=== PATIENT | male | born 1945 | race Caucasian/White ===

== ENCOUNTER 2024-10-08 16:30 | Inpatient (IN) | payer MEDICARE, OTHER, SELFPAY ==
[2024-10-08] VITALS (10 sets, daily range): BP systolic 114–146; BP diastolic 77–91; BMI 26.5; BMI 25.9
--- NOTE | 2024-10-08 11:36 | ED.GENMED ---
ED Provider Triage
<Alex Meredith PA-C - Last Filed: 10/08/24 11:39>
-
Patient seen by provider in Triage?: Seen in Triage
78-year-old male presents with fatigue headache nausea increased urinary symptoms worsening over the past week. Seen in urgent care yesterday tested negative for COVID and flu. He has been sleeping all day which is atypical. No measurable fever
but also notes epigastric discomfort and some heartburn sensation.
Vital signs stable through triage.
Seen by healthcare provider at triage but warrants further assessment
History of Present Illness
<Alex Meredith PA-C - Last Filed: 10/08/24 11:39>
General
Chief Complaint: Cold/Flu/URI Symptoms
Time Seen by Provider: 10/08/24 15:05
<David Moreno MD - Last Filed: 10/08/24 19:06>
General
Source: patient and family
Exam Limitations: none
History of Present Illness
History of Present Illness:
70-year-old male complaining of intermittent indigestion or heartburn since Friday. Last episode this morning. Also some anorexia and fatigue. Currently asymptomatic. No fever no pleuritic pain no other complaints
Past History
<David Moreno MD - Last Filed: 10/08/24 19:06>
Past History
ED Past Medical History: HTN and Other (Prostatic hypertrophy)
ED Past Surgical History: Orthopedic
Review of Systems
<David Moreno MD - Last Filed: 10/08/24 19:06>
Review of Systems
All Other Systems: Not applicable
Constitutional: Denies fever
Respiratory: Reports no symptoms
ABD/GI: Denies abdominal pain, bloody stools or black stools
Phy Exam
<David Moreno MD - Last Filed: 10/08/24 19:06>
Physical Exam
Physical Exam:
GENERAL: Alert and oriented in no apparent distress
EYE: Orbits normal.
NECK: Supple, no significant adenopathy.
ENT: Pharynx without erythema
CARDIAC: Regular rate and rhythm without any obvious murmurs.
LUNGS: Clear breath sounds,normal
ABDOMEN: Soft, without focal tenderness or distention
NEUROLOGICAL: Alert and oriented , grossly non-focal
SKIN: Warm and dry, no rash or lesion, no discoloration, skin intact.
MUSCULOSKELETAL: No edema,no deformity.Good color
PSYCH: Normal and appropriate interaction.
Course
<Alex Meredith PA-C - Last Filed: 10/08/24 11:39>
Orders/Labs/Results
Orders:
Orders
10/08/24 11:35
CR Chest - 2 Views Urgent
Comment:
Reason For Exam: fatigue
10/08/24 11:37
Electrocardiogram (*1) Urgent
Reason for Study: Fatigue / Weakness
EKG- Treatment ONCE
10/08/24 11:41
COVID-19 Antigen Urgent
Source: Nasal Swab
Complete Blood Count/With Diff Urgent
Comprehensive Metabolic Panel Urgent
Lipase Urgent
Influenza A+B Rapid Molecular Urgent
DEBBIE Source: Nasal Swab
Specimen Description:
10/08/24 11:42
Troponin I Urgent
10/08/24 14:35
Electrocardiogram (*1) Urgent
Reason for Study: Chest Pain
EKG- Treatment ONCE
Aspirin Chewable [Low Strength Aspirin] 324 mg PO NOW STA
10/08/24 14:48
Troponin I Urgent
10/08/24 Dinner
Regular
At Your Request: Full Participation
Does patient need a safe tray?: No
10/08/24 16:03
Admit/Transfer Patient As Directed
Co-Sign Provider:
Level of Care: Inpatient admission
Assign to:: Telemetry
Physician / Group: duarte
Diagnosis: nstemi
Reason for Telemetry: Arrhythmia
Date to Stop Telemetry: 10/11/24
Time to Stop Telemetry: 11:00
Reason for Hospitalization: nstemi
Expected length of stay greater than two midnights?: Yes
ELOS- Estimated Length of Stay in days: 2
I certify the patient meets the requirements for IP care: Yes
PRN Pain Medication Management As Directed
May give lesser potent ordered pain med per pt: Yes
preference::
Protocol:: Medication orders for pain may be administered in a
manner that supports deferring to patient preference
when the pt is:
- Requesting an ordered lesser potent pain medication.
Least to most potent pain medications are defined
as: acetaminophen < NSAID < tramadol < opioids
(morphine, oxycodone, hydromorphone).
- Requesting a lesser dose of the same medication IF
ORDERED.
- Requesting a less intrusive route of administration
if both routes are prescribed by the provider (PO <
IV).
10/08/24 16:04
Code Status As Directed
Resuscitation Status: Full Code
10/08/24 16:20
Echo 2D MMode Color/Doppler Routine
Reason for Study: Abnormal troponin
10/08/24 16:53
Urinalysis Reflex To Culture Urgent
Date Specimen was Collected: 10/08/24
Time Specimen was Collected: 16:29
10/08/24 18:25
Troponin I Q6H
Polyethylene Glycol Powder [Miralax] 17 grams PO DAILYPRN PRN
10/08/24 18:25
Echo 2D MMode Color/Doppler Routine
Reason for Study: nstemi
CARDIOLOGY CONSULT Routine
Consulting Provider: Mickey Kaplan
Was physician already notified: Yes
Activity As Directed
Activity Level: As Tolerated
Vital Signs As Directed
Frequency: Per unit guidelines
DX Deep Vein Thrombosis Video Routine
10/08/24 20:00
Heparin 5,000 units SC Q12
10/09/24 00:25
Troponin I Q6H
10/09/24 06:00
Complete Blood Count/With Diff IN AM
Comprehensive Metabolic Panel IN AM
10/09/24 06:25
Troponin I Q6H
10/09/24 08:00
Aspirin Chewable [Low Strength Aspirin] 81 mg PO DAILY
10/11/24 11:00
DC Protocol for Telemetry ONCE
Abnormal Lab Results
10/08/24 10/08/24 10/08/24
11:41 11:42 14:48
RBC 4.25 L 10^6/uL
(4.70-6.10)
MCH 32.2 H pg
(27.0-31.0)
Absolute Lymphs (auto) 0.7 L 10^3/uL
(1.2-3.4)
Absolute Monos (auto) 0.8 H 10^3/uL
(0.1-0.6)
Lymphocytes % 10.6 L %
(20.5-51.1)
Monocytes % 12.1 H %
(1.7-9.3)
Sodium 134 L mmol/L
(135-145)
Chloride 97 L mmol/L
(98-107)
BUN 24 H mg/dl
(9-20)
Glucose 158 H mg/dl
(70-99)
Total Bilirubin 1.5 H mg/dl
(0.2-1.3)
Troponin I 0.109 H* ng/ml 0.099 H* ng/ml
10/08/24 11:41
10/08/24 11:41
Vital Signs
Initial and Last Documented VS:
Initial Vital Signs
Temp Pulse Resp BP Pulse Ox
98.1 F 91 18 124/81 97
10/08/24 11:24 10/08/24 11:24 10/08/24 11:24 10/08/24 11:24 10/08/24 11:24
Last Documented Vital Signs
Temp Pulse Resp BP Pulse Ox
98.6 F 89 16 141/89 99
10/08/24 18:32 10/08/24 18:32 10/08/24 18:32 10/08/24 18:32 10/08/24 18:32
<David Moreno MD - Last Filed: 10/08/24 19:06>
Orders/Labs/Results
Orders:
Orders
10/08/24 11:35
CR Chest - 2 Views Urgent
Comment:
Reason For Exam: fatigue
10/08/24 11:37
Electrocardiogram (*1) Urgent
Reason for Study: Fatigue / Weakness
EKG- Treatment ONCE
10/08/24 11:41
COVID-19 Antigen Urgent
Source: Nasal Swab
Complete Blood Count/With Diff Urgent
Comprehensive Metabolic Panel Urgent
Lipase Urgent
Influenza A+B Rapid Molecular Urgent
DEBBIE Source: Nasal Swab
Specimen Description:
10/08/24 11:42
Troponin I Urgent
10/08/24 14:35
Electrocardiogram (*1) Urgent
Reason for Study: Chest Pain
EKG- Treatment ONCE
Aspirin Chewable [Low Strength Aspirin] 324 mg PO NOW STA
10/08/24 14:48
Troponin I Urgent
10/08/24 Dinner
Regular
At Your Request: Full Participation
Does patient need a safe tray?: No
10/08/24 16:03
Admit/Transfer Patient As Directed
Co-Sign Provider:
Level of Care: Inpatient admission
Assign to:: Telemetry
Physician / Group: duarte
Diagnosis: nstemi
Reason for Telemetry: Arrhythmia
Date to Stop Telemetry: 10/11/24
Time to Stop Telemetry: 11:00
Reason for Hospitalization: nstemi
Expected length of stay greater than two midnights?: Yes
ELOS- Estimated Length of Stay in days: 2
I certify the patient meets the requirements for IP care: Yes
PRN Pain Medication Management As Directed
May give lesser potent ordered pain med per pt: Yes
preference::
Protocol:: Medication orders for pain may be administered in a
manner that supports deferring to patient preference
when the pt is:
- Requesting an ordered lesser potent pain medication.
Least to most potent pain medications are defined
as: acetaminophen < NSAID < tramadol < opioids
(morphine, oxycodone, hydromorphone).
- Requesting a lesser dose of the same medication IF
ORDERED.
- Requesting a less intrusive route of administration
if both routes are prescribed by the provider (PO <
IV).
10/08/24 16:04
Code Status As Directed
Resuscitation Status: Full Code
10/08/24 16:20
Echo 2D MMode Color/Doppler Routine
Reason for Study: Abnormal troponin
10/08/24 16:53
Urinalysis Reflex To Culture Urgent
Date Specimen was Collected: 10/08/24
Time Specimen was Collected: 16:29
10/08/24 18:25
Troponin I Q6H
Polyethylene Glycol Powder [Miralax] 17 grams PO DAILYPRN PRN
10/08/24 18:25
Echo 2D MMode Color/Doppler Routine
Reason for Study: nstemi
CARDIOLOGY CONSULT Routine
Consulting Provider: Mickey Kaplan
Was physician already notified: Yes
Activity As Directed
Activity Level: As Tolerated
Vital Signs As Directed
Frequency: Per unit guidelines
DX Deep Vein Thrombosis Video Routine
10/08/24 20:00
Heparin 5,000 units SC Q12
10/09/24 00:25
Troponin I Q6H
10/09/24 06:00
Complete Blood Count/With Diff IN AM
Comprehensive Metabolic Panel IN AM
10/09/24 06:25
Troponin I Q6H
10/09/24 08:00
Aspirin Chewable [Low Strength Aspirin] 81 mg PO DAILY
10/11/24 11:00
DC Protocol for Telemetry ONCE
Abnormal Lab Results
10/08/24 10/08/24 10/08/24
11:41 11:42 14:48
RBC 4.25 L 10^6/uL
(4.70-6.10)
MCH 32.2 H pg
(27.0-31.0)
Absolute Lymphs (auto) 0.7 L 10^3/uL
(1.2-3.4)
Absolute Monos (auto) 0.8 H 10^3/uL
(0.1-0.6)
Lymphocytes % 10.6 L %
(20.5-51.1)
Monocytes % 12.1 H %
(1.7-9.3)
Sodium 134 L mmol/L
(135-145)
Chloride 97 L mmol/L
(98-107)
BUN 24 H mg/dl
(9-20)
Glucose 158 H mg/dl
(70-99)
Total Bilirubin 1.5 H mg/dl
(0.2-1.3)
Troponin I 0.109 H* ng/ml 0.099 H* ng/ml
10/08/24 11:41
10/08/24 11:41
Vital Signs
Initial and Last Documented VS:
Initial Vital Signs
Temp Pulse Resp BP Pulse Ox
98.1 F 91 18 124/81 97
10/08/24 11:24 10/08/24 11:24 10/08/24 11:24 10/08/24 11:24 10/08/24 11:24
Last Documented Vital Signs
Temp Pulse Resp BP Pulse Ox
98.6 F 89 16 141/89 99
10/08/24 18:32 10/08/24 18:32 10/08/24 18:32 10/08/24 18:32 10/08/24 18:32
<David Moreno MD - Last Filed: 10/08/24 19:06>
MDM/Problems Addressed
Differential Diagnosis Includes:
Patient describing intermittent indigestion/heartburn with fatigue and anorexia. Intermittent since Friday. Clinically stable and asymptomatic at rest. Indeterminate troponin. No obvious abdominal issue. LFTs are normal white count is normal
lipase is normal abdomen is nontender. Assume cardiac until proven otherwise. Discussed with cardiology
<David Moreno MD - Last Filed: 10/08/24 19:06>
*Pulse Oximetry
Patient hypoxic: no
*EKG
Interpreted by ED Provider?: Yes
Interpretation: abnormal
Comparison EKG: no comparison EKG present
Heart Rate: 85
Rate: normal
Rhythm: sinus
[place]: left axis deviation
Interval: normal interval
QRS Pattern: right bundle branch block
Ischemia: non-specific ST changes
*Critical Care Note
Total Time (30-74mins, 75-104mins- exclusive of procedures): Not Applicable
ED Attending Note
<Alex Meredith PA-C - Last Filed: 10/08/24 11:39>
-
Portions of this chart may have been created with voice recognition software.� Occasional wrong word or��sound alike� substitutions may have occurred due to the inherent limitations of voice recognition software.
Discharge Plan
Departure
Patient Disposition: Admit
Date of Disposition: 10/08/24
Time of Disposition: 15:35
Admit to: Telemetry
Presentation/result/management discussed w/ accepting MD/DO: Hospitalist
Discharge Problem:
Intermittent indigestion/heartburn, Indeterminant troponins
Interventions
Interventions:
*Risk Screen - Suicide Last Done: 10/08/24 11:24
*General Assessment Last Done: 10/08/24 11:24
*ED COVID-19 Vaccine History Last Done: 10/08/24 11:24
*Nursing Disposition Last Done: 10/08/24 18:27
ED- Pulmonary Assessment Last Done: 10/08/24 17:41
Discharge Date and Time
Discharge Date/Time: 10/08/24 18:27
[2024-10-08 11:48] LABS: % Basophils 0.3 % (0-2); % Eosinophils 5.2 % (0-6); % Immature Granulocytes 0.3 % (0-0.5); % Lymphocytes 10.6 % (20.5-51.1); % Monocytes 12.1 % (1.7-9.3); % Neutrophils 71.5 % (42.2-75.2); Absolute Eosinophils 0.4 10^3/uL (0-0.7); Absolute Lymphocytes 0.7 10^3/uL (1.2-3.4); Absolute Monocytes 0.8 10^3/uL (0.1-0.6); Absolute Neutrophils 4.9 10^3/uL (1.4-6.5); Hematocrit 39.4 % (39.0-52.0); Hemoglobin 13.7 g/dL (13.0-18.0); Mean Corp Hgb Conc. 34.8 g/dL (33.0-37.0); Mean Corpuscular Hgb 32.2 pg (27.0-31.0); Mean Corpuscular Volume 92.7 fL (80.0-94.0); Mean Platelet Volume 9.6 fL (7.4-10.4); Nucleated Red Blood Cells % 0 % (-); Platelet Count 236 10^3/uL (130-400); Red Blood Cell Count 4.25 10^6/uL (4.70-6.10); White Blood Cell Count 6.8 10^3/uL (4.8-10.8)
[2024-10-08 12:05] LABS: ALT (SGPT) 21 U/L (0-50); AST (SGOT) 22 U/L (17-59); Albumin 4.3 g/dl (3.5-5.0); Alkaline Phosphatase 62 U/L (38-126); Blood Urea Nitrogen 24 mg/dl (9-20); Calcium 8.8 mg/dl (8.4-10.2); Carbon Dioxide 26 mmol/L (22-30); Chloride 97 mmol/L (98-107); Glucose 158 mg/dl (70-99); Lipase 171 U/L (23-300); Potassium 4.6 mmol/L (3.5-5.1); Sodium 134 mmol/L (135-145); Total Bilirubin 1.5 mg/dl (0.2-1.3); Total Protein 7.1 g/dl (6.3-8.2); eGFR > 60.00
[2024-10-08 12:10] LABS: COVID-19 Antigen Negative (Negative)
[2024-10-08 12:17] LABS: Troponin I 0.109 ng/ml
[2024-10-08] MEDS: LOW STRENGTH ASPIRIN 324 MG PO (14:46)
[2024-10-08 15:19] LABS: Troponin I 0.099 ng/ml
--- NOTE | 2024-10-08 16:06 | HPS.HSE ---
Family Physician
-
Family Physician: Alex Holt
Chief Complaint
-
fatigue
History of Present Illness
78-year-old male past medical history of hypertension, BPH, presenting with fatigue, headache, nausea and decreased urination, over the past 4 days he was seen in urgent care yesterday negative for COVID and flu. He has been sleeping all day which
is atypical. No fever but has epigastric discomfort and some heartburn sensation.
Denies smoking or alcohol use.
He states that he had seen a air breaker operator 50 years ago and had a stress test at that time which was negative.
He was also told that he when he had a colonoscopy several years ago he was having myocardial ischemia.
No family history of heart disease.
Medical History
Past Medical History
Past Medical History: Reports Other ( hypertension, BPH, anxiety/depression )
Past Surgical History: Reports None
Social History
Tobacco: Non-smoker
Alcohol: None
Drug: None
Family History
Family History: Not pertinent
Allergies / Home Medications
Allergies reflects when Allergies were last updated in [facility].
Home Medications with original date entered in [facility]
Allergy/Medication List:
Allergies
Allergy/AdvReac Type Severity Reaction Status Date / Time
No Known Allergies Allergy Unverified 10/08/24 11:27
Home Medications
ascorbic acid (vitamin C) 500 mg tablet (Vitamin C) 500 mg PO DAILY 10/08/24
cholecalciferol (vitamin D3) 25 mcg (1,000 unit) tablet (Vitamin D3) 25 mcg PO DAILY 10/08/24
ibuprofen 200 mg tablet (Advil) 400 mg PO DAILYPRN PRN mild pain 10/08/24
linaclotide 145 mcg capsule (Linzess) 145 mcg PO DAILYPRN PRN constipation 10/08/24
lisinopril 20 mg tablet 20 mg PO DAILY 10/08/24
sertraline 50 mg tablet 50 mg PO DAILY 10/08/24
tadalafil 5 mg tablet 5 mg PO DAILY 10/08/24
tamsulosin 0.4 mg capsule (Flomax) 0.4 mg PO DAILY 10/08/24
Review of Systems
-
History Source: Patient
A 12 point ROS was completed and negative except as noted: Yes
Constitutional: Reports No Symptoms
EENT: Reports No Symptoms
Respiratory: Reports No Symptoms
Cardiac: Reports No Symptoms
Abdomen/GI: Reports No Symptoms
: Reports No Symptoms
Musculoskeletal: Reports No Symptoms
Skin: Reports No Symptoms
Neurological: Reports No Symptoms
Endocrine: Reports No Symptoms
Hematologic/Lymphatic: Reports No Symptoms
Psych: Reports No Symptoms
Physical Exam
Vital Signs
Vital Signs
Temp Pulse Resp BP Pulse Ox
98.1 F 72 16 146/88 100
10/08/24 11:24 10/08/24 15:00 10/08/24 15:00 10/08/24 15:00 10/08/24 15:00
Physical Exam
General: Well Developed, Well Nourished and No Apparent Distress
HEENT: NormoCephalic, Moist mucous membranes and Atraumatic
Respiratory: Clear
Cardiac: S1/S2 and Regular Rhythm; No Murmur or Rub
GI: Soft, Non Tender, Non Distended and Normal Bowel Sounds; No Organomegaly
Rectal: Deferred by Provider
Musculoskeletal: No Clubbing, No Cyanosis and No Edema
Skin: No Rash
Neuro: Nonfocal/grossly intact
Laboratory Results
-
10/08/24 11:41
10/08/24 11:41
Laboratory Results
Total Bilirubin 1.5 mg/dl (0.2-1.3) H 10/08/24 11:41
AST 22 U/L (17-59) 10/08/24 11:41
ALT 21 U/L (0-50) 10/08/24 11:41
Alkaline Phosphatase 62 U/L (38-126) 10/08/24 11:41
Troponin I 0.099 ng/ml H* 10/08/24 14:48
Lipase 171 U/L (23-300) 10/08/24 11:41
Data Reviewed
-
Lab Data: Labs Reviewed by me
Old Records: Reviewed
Impression/Plan
-
IMPRESSION:
PLAN:
# Atypical intermittent epigastric pain/fatigue/decreased p.o. intake unclear etiology possible NSTEMI
-EKG shows normal sinus rhythm, right bundle branch block
-Troponin of 0.109, trend troponins
-Chest x-ray negative
-COVID and flu negative
-Aspirin given
-Check echo
-Cardiology consulted
# Possible UTI
-Check urinalysis
Essential hypertension
-Continue lisinopril
BPH
-Continue tamsulosin, tadalafil
Anxiety/depression
-Continue sertraline
Full code
DVT prophylaxis�heparin
Regular diet
--- NOTE | 2024-10-08 16:20 | CON.CAR ---
Addendum entered and electronically signed by Mickey Kaplan MD 10/08/24 18:39:
I saw and examined the patient.
The M[employer] INSPECTOR's note was reviewed and I agree with the note.
78-year-old male with a history of hypertension and no prior history of cardiac disease/coronary artery disease who presented because he has not been feeling well over the last couple of days and has had some intermittent heartburn. 4 days ago he
felt fatigued and had decreased appetite. No abdominal pain vomiting or diarrhea. He felt tired and slept more the last couple days and has not eaten much. In addition he had some intermittent 'heartburn'. He states this was some discomfort that
was in the epigastrium and upper mid abdomen. We were consulted because initial troponin was mildly abnormal at 0.1 follow-up troponin was mildly less. Was mildly abnormal on exam patient is in no distress currently has no chest pain or abdominal
pain. No fever or chills. COVID and influenza negative. Echocardiogram today shows normal left ventricular function estimate ejection fraction 50 to 55%
-Exact cause of presentation unclear. Although patient has mildly elevated troponin and I do not think it explains all of his presentation with decreased appetite and fatigue. Although epigastric discomfort can sometimes represent angina would
also consider other GI causes considering the location that he points for his discomfort. Note patient has some concern because his mother had pancreatic cancer. Also possible patient has viral illness adding to patient's symptoms
-Serial troponins
-Aspirin 81 mg a day
-Consider abdominal ultrasound with GI symptomatology and check follow-up LFTs and consider abdominal ultrasound with epigastric discomfort and modestly abnormal bilirubin.
-Based on troponins and patient's clinical course we can determine which testing will be done as an inpatient versus outpatient.
-Defer to primary team to further assess cause of patient's generalized fatigue and anorexia
Original Note:
Consultation
Consultation Request
Date/Time Consultation Requested: 10/08/2024 16:05
Date/Time Consultation Performed: 10/08/2024 16:20
Requesting Provider: Dr. Rendon
Performing Provider: FATIMAH Patel for Dr. Kaplan
Reason for Consultation: Abnormal troponin
Medical History
-
Chief Complaint: Fatigue, headache, nausea, decreased urination
History of Present Illness:
Eliel Batista is a 78-year-old male with hypertension, BPH, and anxiety/depression who presented to urgent care with poor oral intake, fatigue, and headache. He was negative for COVID-19 and influenza. He has been sleeping for most of the day which is
atypical for him. He does endorse intermittent heartburn. He last had heartburn this morning. It was shortly after breakfast. He is not sure how long it lasted. He was found to have an abnormal troponin. He is not having heartburn currently.
He denies chest pain, back pain, diaphoresis, and shortness of breath.
Past Medical History
Past Medical History: HTN, Psychiatric (Anxiety, depression) and Other (BPH)
Social History
Tobacco: Non-Smoker
Alcohol: None
Drug: None
Personal:
Living: With Family
Employment: Employed
Family History
Family History: Reviewed & Not Pertinent
Allergies / Home Medications
Allergy/AdvReac Type Severity Reaction Status Date / Time
No Known Allergies Allergy Unverified 10/08/24 11:27
�Medication �Instructions �Recorded �Confirmed �Type
ascorbic acid (vitamin C) 500 mg 500 mg PO DAILY 10/08/24 10/08/24 History
tablet (Vitamin C)
cholecalciferol (vitamin D3) 25 25 mcg PO DAILY 10/08/24 10/08/24 History
mcg (1,000 unit) tablet (Vitamin
D3)
ibuprofen 200 mg tablet (Advil) 400 mg PO DAILYPRN PRN mild pain 10/08/24 10/08/24 History
linaclotide 145 mcg capsule 145 mcg PO DAILYPRN PRN 10/08/24 10/08/24 History
(Linzess) constipation
lisinopril 20 mg tablet 20 mg PO DAILY 10/08/24 10/08/24 History
sertraline 50 mg tablet 50 mg PO DAILY 10/08/24 10/08/24 History
tadalafil 5 mg tablet 5 mg PO DAILY 10/08/24 10/08/24 History
tamsulosin 0.4 mg capsule (Flomax) 0.4 mg PO DAILY 10/08/24 10/08/24 History
Review of Systems
-
History Source: Patient
All other systems: Negative unless noted
Constitutional: Fatigue
EENT: No Symptoms
Respiratory: No Symptoms
Cardiac: No Symptoms
Abdomen/GI: Diarrhea
: No Symptoms
Musculoskeletal: No Symptoms
Skin: No Symptoms
Neurological: No Symptoms
Endocrine: No Symptoms
Hematologic/Lymphatic: No Symptoms
Physical Exam
Vital Signs
Temp Pulse Resp BP Pulse Ox
98.1 F 72 16 146/88 100
10/08/24 11:24 10/08/24 15:00 10/08/24 15:00 10/08/24 15:00 10/08/24 15:00
Lab Results
10/08/24 11:41
10/08/24 11:41
Troponin I 0.099 ng/ml H* 10/08/24 14:48
Physical Exam
General: Well Developed, Well Nourished, No Apparent Distress and Comfortable
HEENT: Normocephalic and Anicteric
Respiratory: Clear and Non Labored Respirations
Cardiac: S1/S2 and Regular Rhythm; Negative Peripheral Edema
Breast: Deferred by me
GI: Soft, Non Tender, Non Distended and Normal Bowel Sounds
Rectal: Deferred by Provider
Genito-urinary: No Costovertebral Tender
Musculoskeletal: No Clubbing, No Cyanosis and No Edema
Skin: Warm and Dry
Neuro: AO x 3
Hematologic/Lymphatic: No Lymphadenopathy
Psych: Calm
Impression / Plan
-
IMPRESSION/PLAN: 78M with HTN, BPH, and anxiety/depression presented with fatigue, poor oral intake, and heartburn was found to have an abnormal troponin.
Abnormal troponin
-Trend with EKG
-He received ASA 324 mg in the emergency department
-Echocardiogram ordered
Diarrhea
-Consider norovirus, defer to primary service
Hypertension, stable, continue current medical therapy
Data Reviewed
-
EKG: Report Reviewed by me (Sinus rhythm, left axis, RBBB, rate 82)
Labs: Labs Reviewed by me
[2024-10-08 17:11] LABS: Urine Albumin Negative (Neg - Trace); Urine Bilirubin Negative (Negative); Urine Character Clear (Clear); Urine Color Yellow; Urine Glucose Negative (Negative); Urine Ketone Negative (Negative); Urine Leukocyte Negative (Negative); Urine Nitrite Negative (Negative); Urine Occult Blood Negative (Negative); Urine Specific Gravity 1.015 (<1.030); Urine Urobilinogen Negative (Neg - 1+)
[2024-10-08] MEDS: HEPARIN 5000 UNITS SC (20:00)
--- NOTE | 2024-10-08 21:00 | PTCARENOTE ---
Patient admitted to 4W. Telemetry order> NSR w/ RBB, afebrile, HR 84, BP 128/77, pox 98% room air. No c/o pain. Pt ordered serial trops w/ EKG. #20INT that is capped. Plan of care discussed with patient. Call gallardo within reach.
[2024-10-08 21:04] LABS: Troponin I 0.098 ng/ml
[2024-10-08] MEDS: MELATONIN 5 MG PO (22:19)
[2024-10-09 03:07] VITALS: BP 148/84
[2024-10-09 03:24] LABS: Troponin I 0.082 ng/ml
[2024-10-09 07:00] VITALS: BP 132/79
[2024-10-09 08:26] LABS: % Basophils 0.5 % (0-2); % Eosinophils 6.6 % (0-6); % Immature Granulocytes 0.3 % (0-0.5); % Lymphocytes 15.6 % (20.5-51.1); % Monocytes 12.4 % (1.7-9.3); % Neutrophils 64.6 % (42.2-75.2); Absolute Eosinophils 0.4 10^3/uL (0-0.7); Absolute Lymphocytes 0.9 10^3/uL (1.2-3.4); Absolute Monocytes 0.7 10^3/uL (0.1-0.6); Absolute Neutrophils 3.8 10^3/uL (1.4-6.5); Hematocrit 34.5 % (39.0-52.0); Hemoglobin 12.3 g/dL (13.0-18.0); Mean Corp Hgb Conc. 35.7 g/dL (33.0-37.0); Mean Corpuscular Hgb 32.9 pg (27.0-31.0); Mean Corpuscular Volume 92.2 fL (80.0-94.0); Mean Platelet Volume 9.9 fL (7.4-10.4); Nucleated Red Blood Cells % 0 % (-); Platelet Count 218 10^3/uL (130-400); Red Blood Cell Count 3.74 10^6/uL (4.70-6.10); Red Cell Dist. Width 11.8 % (11.5-14.5)
[2024-10-09] MEDS: HEPARIN 5000 UNITS SC (08:48)
[2024-10-09] MEDS: LOW STRENGTH ASPIRIN 81 MG PO (08:49)
[2024-10-09 08:51] LABS: ALT (SGPT) 19 U/L (0-50); AST (SGOT) 22 U/L (17-59); Albumin 3.6 g/dl (3.5-5.0); Alkaline Phosphatase 60 U/L (38-126); Blood Urea Nitrogen 15 mg/dl (9-20); Calcium 8.1 mg/dl (8.4-10.2); Carbon Dioxide 28 mmol/L (22-30); Chloride 96 mmol/L (98-107); Estimated Creatinine Clearance 115 ml/min; Glucose 129 mg/dl (70-99); Potassium 4.9 mmol/L (3.5-5.1); Sodium 134 mmol/L (135-145); Total Bilirubin 1.4 mg/dl (0.2-1.3); Total Protein 6.1 g/dl (6.3-8.2); eGFR > 60.00
--- NOTE | 2024-10-09 08:53 | PTCARENOTE ---
pt aox3, denies pain, sob, n/v. states that he was feeling fatigue and had reflux when admitted but fells better now. currently watching dvt video. resting, call gallardo in reach
[2024-10-09 09:05] LABS: Troponin I 0.071 ng/ml
--- NOTE | 2024-10-09 10:31 | W.PN.HOSP.TC ---
Addendum entered and electronically signed by Keith Murray MD 10/09/24 14:45:
Direct bilirubin has come back as 0.0 indicating indirect bilirubinemia prob Yelena. Other LFTs normal . Pt without abdo tenderness and now tolerating diet. Doubt GB dz clinically .Hold on US abdomen.
Cardiology cleared for DC home with OP stress testing.
Original Note:
Today's Communication/Plan
-
Fractionated bilirubin.
Check an ultrasound of the abdomen.
Await further cardiology recommendations
Assessment / Plan
Assessment / Plan
# Atypical intermittent epigastric pain/nausea/fatigue/decreased p.o. intake.
Associated headache, tiredness and excessive sleeping and can go to work.
Constellation of symptoms are nonspecific and could be viral. COVID and flu negative.
Today asymptomatic and tolerating diet.
LFTs are normal. Lipase is normal. Mildly elevated bilirubin unclear if it is direct or indirect. Will fractionate bilirubin today. With symptom of nausea and nonspecific abdominal discomfort and poor oral intake with his symptoms we will get an
ultrasound of the gallbladder to rule out no biliary pathology.
Urinalysis negative
#Abnormal troponins-patient without chest pain. Troponin is in the indeterminate range. He has a right bundle branch block. Unknown baseline. No history of CAD. Unclear etiology. With constellation of symptoms concerning for nonspecific
illness and viral illness could be related to that. Appreciate cardiology input.
-EKG shows normal sinus rhythm, right bundle branch block
-Troponin of 0.109 peak now coming down
-Chest x-ray negative
-COVID and flu negative
-Aspirin given
-Echo with normal EF no significant valvular abnormality.
-Cardiology consulted
Essential hypertension
-Continue lisinopril
BPH
-Continue tamsulosin, tadalafil
Anxiety/depression
-Continue sertraline
Full code
DVT prophylaxis�heparin
Regular diet
Anticipated Discharge: Today
Subjective/Interval History
-
Date of Service: October 09, 2024
Patient feels better. Today he has no complaints.
Does not feel fatigued or weak today.
He denies any abdominal discomfort and nausea. He had his dinner and breakfast without issues. No diarrhea.
Denies any chest pain or shortness of breath. No fever or chills.
No sore throat or cough.
Keen to go home today.
Patient's symptoms started on Friday. When he came back from home he was looking crampy per . He had fatigue. He had some headache which is now resolved. He had some nausea and nonspecific abdominal discomfort. No vomiting. Friday he
could not going to work. He was not able to go to work this week because of a weakness. He was sleeping in bed. He had gone to urgent care center had a COVID and flu testing and was discharged home.
Denies any prior history of peptic ulcer disease or gallbladder disease.
Denies any prior history of CAD or heart problems.
Objective Data
-
Labs:
Laboratory Results
10/09/24
07:43
WBC 6.0
Hgb 12.3 L
Hct 34.5 L
Plt Count 218
Sodium 134 L
Potassium 4.9
Chloride 96 L
Carbon Dioxide 28
BUN 15
Creatinine 0.6 L
Glucose 129 H
Calcium 8.1 L
Total Bilirubin 1.4 H
AST 22
ALT 19
Alkaline Phosphatase 60
Vital Signs:
Vital Signs
Temp Pulse Resp BP Pulse Ox
98.7 F 79 18 132/79 98
10/09/24 07:00 10/09/24 07:00 10/09/24 07:00 10/09/24 07:00 10/09/24 07:00
I&O
10/08/24 10/09/24 10/10/24
06:59 06:59 06:59
Intake Total 480 / 480 480 / 480
Balance 480 / 480 480 / 480
Review of Systems
-
Constitutional: Denies Fever or Chills
EENT: Denies Sore Throat
Respiratory: Denies Cough
Abdomen/GI: Denies Diarrhea or Constipated
Neuro: Denies Dizzy or Headache (Added with his other symptoms which is resolved)
Physical Exam
-
General: Comfortable
Respiratory: Non Labored Respirations; Negative Wheezes, Crackles or Accessory Resp Muscle Use
Cardiac: Regular Rhythm and S1/S2; Negative Murmur
GI: Soft, Nontender, Nondistended and Normal Bowel Sounds
Neuro: AO x 3
Psych: Calm
Data Reviewed
-
Medical Tests (Nuc Med, Echo etc): Report Reviewed by me (Echo)
Labs: Labs Reviewed by me
[2024-10-09 11:00] VITALS: BP 132/87
--- NOTE | 2024-10-09 12:34 | CM ---
income tax manager reviewed patient's chart and met with patient and patient reports that he lives with his spouse in a multilevel home, patient is independent with adl's and ambulation, no dme, patient drives, patient works, home when stable no needs.
PCP: Dr. Holt
Pharmacy: [facility] in [place].
--- NOTE | 2024-10-09 14:46 | W.PN.CD ---
Today's Communication / Plan
-
Outpt stress test
Cardiology will sign off
Impression / Plan
-
Background: 78M with HTN, BPH, and anxiety/depression presented with fatigue, poor oral intake, and heartburn was found to have an abnormal troponin.
Abnormal troponin from a nonischemic myocardial injury presumably from his presenting GI illness, not a primary cardiac event is our impression
-Echo negative
-F/u EKG negative
-Trop trended down
-Suggest outpt stress test for risk stratification given this myocardial injury
Bifascicular block
Diarrhea
-Consider norovirus, defer to primary service
Hypertension, stable, continue current medical therapy
Physical Exam
Vital Signs/Labs
Vital Signs
Temp Pulse Resp BP Pulse Ox
98.9 F 73 20 132/87 95
10/09/24 11:00 10/09/24 11:00 10/09/24 11:00 10/09/24 11:00 10/09/24 11:00
10/08/24 10/09/24 10/10/24
06:59 06:59 06:59
Actual Weight 88.949 kg
10/09/24 07:43
10/09/24 07:43
LAB Results
10/08/24 10/08/24 10/08/24
11:42 14:48 20:12
Troponin I 0.109 H* 0.099 H* 0.098 H*
10/09/24 10/09/24
02:07 07:43
Troponin I 0.082 H* 0.071 H*
Physical Exam
Constitutional: No acute distress
Cardiovascular: Rhythm & rate is regular and Pedal edema is absent
Respiratory: Respiratory effort normal and Lungs clear to auscul.
GI: Soft and Distention absent
Data Reviewed
-
Date of Service: October 09, 2024
[2024-10-09 15:00] VITALS: BP 164/85
--- NOTE | 2024-10-09 16:34 | W.DCSUMMARY ---
Discharge Summary
Discharge Data
Date of Admission: 10/08/24
Date of Discharge: 10/09/24
-
Pending Results: No
Hospital Course
Primary diagnosis:
Atypical intermittent epigastric pain/nausea/fatigue/decreased p.o. intake.
Indeterminate troponin elevation
Secondary diagnosis:
Essential hypertension
Benign prostatic hypertension
Hospital course:
78-year-old gentleman with no history of CAD presented with constellation of symptoms of fatigue, tiredness, excessive sleeping headache, general feeling of unwell with some intermittent epigastric discomfort and nausea. He had no fever or chills.
Symptoms were present for about 4 days. During the symptoms he in fact visited urgent care center had evaluation and was discharged home. In view of intermittent epigastric pain and nausea he present to the hospital.
He was afebrile. His abdomen is benign. Chest x-ray showed no evidence of cardiopulmonary disease. Lab work showed mildly elevated bilirubin which was in direct. Direct was 0.
There was a intermittent troponin elevation of 0.1 for which he was admitted for evaluation. Serial troponins did not show any further increase. He had no chest pain. Unclear etiology for his troponin elevation. With his constellation of
nonspecific symptoms this could be a viral phenomenon. COVID and influenza were negative. He was afebrile and white count was normal.
Cardiology consultation was obtained who recommended outpatient stress test.
He had resolution of his symptoms and was tolerating a diet prior to discharge.
Consultants on board:
Cardiology Mickey Horton
Discharge Plan
-
Patient Disposition: Home (Routine Discharge)
Discharge Diagnosis/Procedures: Atypical chest pain/epigastric pain with nonspecific systemic symptoms
Diet: 2 Gram Sodium
Activity: As tolerated
Driving Restrictions: As prior to admission
Bathing Restrictions: None
Referrals:
Franklin Holt MD [Family Provider] - in less than 1 week
Mickey Kaplan MD [Active] - in one to two weeks (To arrange for Out patient stress test -call the office for an appointment)
Prescriptions:
New
aspirin 81 mg Tablet,Chewable
81 mg PO DAILY Qty: 30 0RF
Rx Instructions:
Till stress test is completed
Continued
lisinopril 20 mg Tablet
20 mg PO DAILY
ascorbic acid (vitamin C) [Vitamin C] 500 mg Tablet
500 mg PO DAILY
tamsulosin [Flomax] 0.4 mg Capsule
0.4 mg PO DAILY
sertraline 50 mg Tablet
50 mg PO DAILY
tadalafil 5 mg Tablet
5 mg PO DAILY
cholecalciferol (vitamin D3) [Vitamin D3] 25 mcg (1,000 unit) Tablet
25 mcg PO DAILY
Linzess 145 mcg Capsule
145 mcg PO DAILYPRN PRN (Reason: constipation)
Discontinued
ibuprofen [Advil] 200 mg Tablet
400 mg PO DAILYPRN PRN (Reason: mild pain)
Discharge Orders:
Discharge Patient (As Directed); Ordered 10/09/24
Ordered By: Keith Murray
Discharge Date and Time
Discharge Date/Time: 10/09/24 15:24
Print Language: MALAWIAN
== END 2024-10-09 15:24 | disposition home or self-care (01) | DRG 392 ==
LOC: 4 WEST ACU 16:30
PROVIDERS: Physician Assistant; ADMITTING PHYSICIAN Hospitalist; ATTENDING PHYSICIAN Internal Medicine; CONSULT PHYSICIAN Internal Medicine Cardiovascular Disease; EMERGENCY PHYSICIAN Emergency Medicine; FAMILY PHYSICIAN Internal Medicine
DX: A08.11 Acute gastroenteropathy due to Norwalk agent (principal); I45.2 Bifascicular block; I5A Non-ischemic myocardial injury (non-traumatic); I10 Essential (primary) hypertension; F32.A Depression, unspecified; F41.9 Anxiety disorder, unspecified; I45.10 Unspecified right bundle-branch block; N40.0 Benign prostatic hyperplasia without lower urinary tract symptoms; Z79.899 Other long term (current) drug therapy; Z11.52 Encounter for screening for COVID-19
CPT/HCPCS: 71046; 80053; 81003; 82248; 83690; 84484; 85025; 87502; 87811; 93005; 93306; 99285

== ENCOUNTER 2024-10-14 13:28 | Inpatient (IN) | payer MEDICARE, OTHER, SELFPAY ==
[2024-10-14] VITALS (14 sets, daily range): BP systolic 120–161; BP diastolic 64–89; PULSE 54–87; BMI 26.0; BMI 24.9
--- NOTE | 2024-10-14 11:00 | ED.GENMED ---
History of Present Illness
General
Chief Complaint: Fainting/Passed Out
Source: patient
Exam Limitations: none
Time Seen by Provider: 10/14/24 10:49
History of Present Illness
History of Present Illness:
See MDM
Past History
Past History
ED Past Medical History: HTN and Other (Prostatic hypertrophy)
ED Past Surgical History: Orthopedic
Phy Exam
Physical Exam
Physical Exam:
See MDM
Course
Orders/Labs/Results
Orders:
Orders
10/14/24 10:39
Electrocardiogram (*1) Urgent
Reason for Study: Chest Pain
10/14/24 10:40
EKG- Treatment ONCE
10/14/24 10:57
Complete Blood Count/With Diff Urgent
Comprehensive Metabolic Panel Urgent
TSH Reflex To Free T4 Urgent
Comment: ADD ON
Troponin I Urgent
10/14/24 11:02
PTT Urgent
Prothrombin Time Urgent
10/14/24 11:06
CARDIOLOGY CONSULT Urgent
Consulting Provider: Ryan Cook
Was physician already notified: Yes
10/14/24 12:28
Add On- LAB Routine
Tests Added?: TSH with reflex to free T4
10/14/24 12:42
Case Management Consult ONCE
Case Management Consult: Other
Comment: pricing for Eliquis 5 mg PO BID for patient using his prescription insurance plan. TY
Orthostatic Vital Signs As Directed
Orthostatic VS Frequency: BID
Abnormal Lab Results
10/14/24 10/14/24
10:57 11:02
RBC 4.23 L 10^6/uL
(4.70-6.10)
MCV 94.1 H fL
(80.0-94.0)
MCH 31.9 H pg
(27.0-31.0)
Abs Immat Gran (auto) 0.1 H 10^3/uL
(0-0.05)
Absolute Neuts (auto) 6.7 H 10^3/uL
(1.4-6.5)
Immature Gran % 0.6 H %
(0-0.5)
Neutrophils % 76.2 H %
(42.2-75.2)
Lymphocytes % 16.2 L %
(20.5-51.1)
PT 15.6 H Sec
(11.4-14.6)
Glucose 147 H mg/dl
(70-99)
10/14/24 10:57
10/14/24 10:57
Vital Signs
Initial and Last Documented VS:
Initial Vital Signs
Temp Pulse Resp BP Pulse Ox
97.8 F 75 16 154/89 98
10/14/24 10:46 10/14/24 10:46 10/14/24 10:46 10/14/24 10:46 10/14/24 10:46
Last Documented Vital Signs
Temp Pulse Resp BP Pulse Ox
97.8 F 57 18 154/89 92
10/14/24 10:46 10/14/24 11:30 10/14/24 11:30 10/14/24 10:46 10/14/24 11:30
MDM/Problems Addressed
Differential Diagnosis Includes:
HPI and MDM Narrative:
78-year-old male presenting with syncopal event. Patient was working and he felt 'fuzzy' so he started to walk away and then he passed out. Patient does not think he was passed out for too long. Patient back to normal baseline. He was just
admitted a week ago with concern for NSTEMI. He had an echocardiogram and seen by cardiology and discharged with close follow-up. He has stress test scheduled for 2 weeks. However, EKG concerning for A-fib which appears to be new. He is rate
controlled. Will have cardiology evaluate
Physical exam
General: Well appearing and non-toxic
HEENT: protecting airway
Neck: appears supple
CV: No evidence of cyanosis. Regular rate, irregular rhythm
Resp: No accessory muscle use
Abd: Non-distended
Extremities: No deformities
Neuro: alert
Psych: Normal affect
Skin: Intact
Problems Addressed including Acute and Chronic Conditions affecting care:
1. New onset A-fib
Acuity: acute
Prognosis: stable
Details: Potentially the cause of syncope. Will obtain troponin and basic blood work and have cardiology evaluate
Updates
After workup performed, case discussed with cardiology who recommended admit for cath versus stress
Differential Diagnosis (but not limited to): New onset A-fib, NSTEMI, ACS
Testing considered: Repeat chest x-ray
Drug therapy (if applicable): OTC meds, please see d/c instruction regarding Rx drugs
Amount and/or Complexity of Data Reviewed
Clinical info obtained from: Patient
External data reviewed: N/A
Labs I independently reviewed (but not limited to): Troponin negative
Radiology: N/A
Pulse Ox: not hypoxicI
EKG independently reviewed: A-fib, left axis, no STEM
Production Weigher: Rate controlled A-fib
Critical Care: N/A
Risk of Complication:
Social Determinants of health: Good social support
Discussed with other providers: Animal Care Technician, hospitalist
Escalation of Care includes Admit/Obs: Given new onset A-fib with syncope, will admit for further evaluation
Occasional wrong word or 'sound a like' substitutions may have occurred due to the inherent limitations of voice recognition software. Read the chart carefully and recognize, using context, where substitutions have occurred.
*Critical Care Note
Total Time (30-74mins, 75-104mins- exclusive of procedures): Not Applicable
ED Attending Note
-
Portions of this chart may have been created with voice recognition software.� Occasional wrong word or��sound alike� substitutions may have occurred due to the inherent limitations of voice recognition software.
Discharge Plan
Departure
Patient Disposition: Admit
Date of Disposition: 10/14/24
Time of Disposition: 12:44
Admit to: Telemetry
Presentation/result/management discussed w/ accepting MD/DO: Hospitalist
Discharge Problem:
New onset a-fib, Syncope
Prescriptions:
No Action
lisinopril 20 mg Tablet
20 mg PO DAILY
ascorbic acid (vitamin C) [Vitamin C] 500 mg Tablet
500 mg PO DAILY
tamsulosin [Flomax] 0.4 mg Capsule
0.4 mg PO DAILY
sertraline 50 mg Tablet
50 mg PO DAILY
tadalafil 5 mg Tablet
5 mg PO DAILY
cholecalciferol (vitamin D3) [Vitamin D3] 25 mcg (1,000 unit) Tablet
25 mcg PO DAILY
Linzess 145 mcg Capsule
145 mcg PO DAILYPRN PRN (Reason: constipation)
aspirin 81 mg Tablet,Chewable
81 mg PO DAILY Qty: 30 0RF
Rx Instructions:
Till stress test is completed
Referrals:
David Holt MD [Family Provider] -
Interventions
Interventions:
*Risk Screen - Suicide Last Done: 10/14/24 10:46
*General Assessment Last Done: 10/14/24 11:00
*Neglect/Abuse Screening Last Done: 10/14/24 10:46
*ED COVID-19 Vaccine History Last Done: 10/14/24 11:00
ED- Cardiac Assessment Last Done: 10/14/24 11:15
ED- Neurological Assessment Last Done: 10/14/24 11:15
Discharge Date and Time
Print Language: PORTUGUESE
[2024-10-14 11:09] LABS: % Basophils 0.6 % (0-2); % Immature Granulocytes 0.6 % (0-0.5); % Lymphocytes 16.2 % (20.5-51.1); % Monocytes 5.4 % (1.7-9.3); % Neutrophils 76.2 % (42.2-75.2); Absolute Basophils 0.1 10^3/uL (0-0.2); Absolute Eosinophils 0.1 10^3/uL (0-0.7); Absolute Immature Granulocytes 0.1 10^3/uL (0-0.05); Absolute Lymphocytes 1.4 10^3/uL (1.2-3.4); Absolute Monocytes 0.5 10^3/uL (0.1-0.6); Absolute Neutrophils 6.7 10^3/uL (1.4-6.5); Hematocrit 39.8 % (39.0-52.0); Hemoglobin 13.5 g/dL (13.0-18.0); Mean Corp Hgb Conc. 33.9 g/dL (33.0-37.0); Mean Corpuscular Hgb 31.9 pg (27.0-31.0); Mean Corpuscular Volume 94.1 fL (80.0-94.0); Mean Platelet Volume 9.3 fL (7.4-10.4); Nucleated Red Blood Cells % 0 % (-); Platelet Count 367 10^3/uL (130-400); Red Blood Cell Count 4.23 10^6/uL (4.70-6.10); Red Cell Dist. Width 11.7 % (11.5-14.5); White Blood Cell Count 8.8 10^3/uL (4.8-10.8)
[2024-10-14 11:20] LABS: ALT (SGPT) 28 U/L (0-50); AST (SGOT) 28 U/L (17-59); Albumin 4.2 g/dl (3.5-5.0); Alkaline Phosphatase 74 U/L (38-126); Blood Urea Nitrogen 18 mg/dl (9-20); Calcium 9.1 mg/dl (8.4-10.2); Carbon Dioxide 26 mmol/L (22-30); Chloride 100 mmol/L (98-107); Estimated Creatinine Clearance 98 ml/min; Glucose 147 mg/dl (70-99); Potassium 4.5 mmol/L (3.5-5.1); Sodium 135 mmol/L (135-145); Total Bilirubin 0.7 mg/dl (0.2-1.3); Total Protein 7.2 g/dl (6.3-8.2); eGFR > 60.00
[2024-10-14 11:20] LABS: INR 1.18; PT 15.6 Sec (11.4-14.6)
[2024-10-14 11:30] LABS: Troponin I < 0.012 ng/ml
--- NOTE | 2024-10-14 11:43 | CON.CAR ---
Addendum entered and electronically signed by Ryan Cook MD 10/14/24 16:11:
78 yo male with recent admission with GI sxs, and also noted to have acute non-ischemic myocardial injury and bifascicular block. Now returns with syncope at work, preceded by dizziness. No chest pain. Exam with irregular rhythm, no murmurs, no
edema. TnI <0.012. EKG: A fib, bifascicular block. Echo 10/08/24: EF 50-55%, no sig valve disease.
A fib is new. Ventricular response is overall slow without AV felix agents. Bifascicular block noted. Raises concern for major-arrhythmia causing syncope. Monitor on tele overnight.
CHADS2-VASC = 3. Heparin for AC for now in case needs procedure.
Given prior elevated troponin, will plan for nuclear stress in AM.
Original Note:
Consultation
Consultation Request
Date/Time Consultation Requested: 10/14/24 1135
Date/Time Consultation Performed: 10/14/24 1144
Requesting Provider: Dr. Land
Performing Provider: Kendra SHERIDAN for Dr. Cook
Reason for Consultation: syncope, AFIB
Medical History
-
Chief Complaint: syncope
History of Present Illness:
78 y/o male (new patient of Dr. Kaplan after last admit earlier this month) with hypertension, BPH, anxiety/depression. He was recently hospitalized with symptoms of heartburn, fatigue, decreased appetite, diarrhea. Troponin was mildly abnormal
felt to be acute, non ischemic myocardial injury in the setting of GI illness. Recent echo unremarkable. EKG showed bifascicular block. He was sent home with plans for OP stress test. 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
and felt 'fuzzy' and went to walk away and then passed out. He does not appear to be injured and feels it was only brief (seconds) that he lost consciousness. He is here in the ER and is seen to have new AFIB, with rates in 50's. He is in no
distress at the time of my assessment. His son-in-law is at the bedside. He denies CP, SOB, or palpitations.
Past Medical History
Past Medical History: HTN, Psychiatric (as above) and Other (BPH, as above)
Social History
Tobacco: Non-Smoker
Employment: Employed
Family History
Family History: Reviewed & Not Pertinent
Allergies / Home Medications
Allergy/AdvReac Type Severity Reaction Status Date / Time
No Known Allergies Allergy Verified 10/14/24 10:48
�Medication �Instructions �Recorded �Confirmed �Type
ascorbic acid (vitamin C) 500 mg 500 mg PO DAILY 10/08/24 10/08/24 History
tablet (Vitamin C)
cholecalciferol (vitamin D3) 25 25 mcg PO DAILY 10/08/24 10/08/24 History
mcg (1,000 unit) tablet (Vitamin
D3)
linaclotide 145 mcg capsule 145 mcg PO DAILYPRN PRN 10/08/24 10/08/24 History
(Linzess) constipation
lisinopril 20 mg tablet 20 mg PO DAILY 10/08/24 10/08/24 History
sertraline 50 mg tablet 50 mg PO DAILY 10/08/24 10/08/24 History
tadalafil 5 mg tablet 5 mg PO DAILY 10/08/24 10/08/24 History
tamsulosin 0.4 mg capsule (Flomax) 0.4 mg PO DAILY 10/08/24 10/08/24 History
aspirin 81 mg chewable tablet 81 mg PO DAILY #30 tabs 10/09/24 Rx
Review of Systems
-
History Source: Patient
All other systems: Negative unless noted
Cardiac: Syncope
Physical Exam
Vital Signs
Temp Pulse Resp BP Pulse Ox
97.8 F 57 18 154/89 92
10/14/24 10:46 10/14/24 11:30 10/14/24 11:30 10/14/24 10:46 10/14/24 11:30
Lab Results
10/14/24 10:57
10/14/24 10:57
Troponin I < 0.012 ng/ml 10/14/24 10:57
Physical Exam
General: Well Developed, Well Nourished and No Apparent Distress
HEENT: Normocephalic and Anicteric
Respiratory: Clear and Non Labored Respirations
Cardiac: Regular Rhythm
Musculoskeletal: No Edema
Skin: Warm and Dry
Neuro: AO x 3
Psych: Calm
Impression / Plan
-
Syncope:
-short, several second prodrome- felt 'fuzzy'
-cause unknown, but I have concerns for rhythm cause due to his cardiac conduction disease (bifascicular block, and AFIB with bradycardia without meds)- should follow telemetry
-check orthos as well
-recent echo as noted, no need to repeat
-with recent abnormal trop, now syncope, will obtain stress test in AM- nuclear exercise- can transition to samina if needed.
AFIB, new diagnosis:
-type unknown
-[id number] score is 3 for age and HTN. Recommend Eliquis 5 mg PO BID (c/s CM for pricing)- start with heparin drip in meantime while we monitor telemetry and await stress test results. This requires intensive monitoring. Denies bleeding issues.
-rate-controlled without meds
HTN:
-on lisinopril as OP- continue and monitor
Data Reviewed
-
EKG: Tracing Personally Visualized and interpreted (AFIB RBBB)
Radiology: Report Reviewed by me (CXR 10/08/24: No evidence of active cardiopulmonary disease.)
Medical Tests (Nuc Med, Echo etc): Report Reviewed by me (echo 10/08/24: Normal left ventricular function estimated ejection fraction 50 to 55%. Mild concentric left ventricular hypertrophy. Mild mitral regurgitation. Trace aortic regurgitation.)
Labs: Labs Reviewed by me
--- NOTE | 2024-10-14 12:44 | HPS.HSE ---
Family Physician
-
Family Physician: David Holt
Chief Complaint
-
passed out
History of Present Illness
Mr. Eliel Batista is a 78 yo man with hx essential HTN, BPH, recent admission 10/08 - 10/09 for generalized complaints with increased Troponin with plans for outpatient stress test presets to the ER after an episode of syncope.
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 Briefly after starting he began to feel lightheaded and so stepped aside when he said he suddenly fell to floor, may be hit a cart on way down. He was only out
for several seconds, was not witnessed. He got up and and then came here to the ER. Denies palpitations, chest pain prior to event. Denies headache. No focal weakness in arms or legs. No bowel/bladder changes or post syncopal confusion.
Currently in afib and does not feel palpitations.
No abdominal pain, no nausea/vomiting/diarrhea. No LE swelling.
Medical History
Past Medical History
Past Medical History: Reports Other ( hypertension, BPH, anxiety/depression )
Past Surgical History: Reports None
Social History
Tobacco: Non-smoker
Alcohol: None
Drug: None
Family History
Family History: Not pertinent
Allergies / Home Medications
Allergies reflects when Allergies were last updated in [employer].
Home Medications with original date entered in [employer]
Allergy/Medication List:
Allergies
Allergy/AdvReac Type Severity Reaction Status Date / Time
No Known Allergies Allergy Verified 10/14/24 10:48
Home Medications
ascorbic acid (vitamin C) 500 mg tablet (Vitamin C) 500 mg PO DAILY 10/08/24
cholecalciferol (vitamin D3) 25 mcg (1,000 unit) tablet (Vitamin D3) 25 mcg PO DAILY 10/08/24
linaclotide 145 mcg capsule (Linzess) 145 mcg PO DAILYPRN PRN constipation 10/08/24
lisinopril 20 mg tablet 20 mg PO DAILY 10/08/24
sertraline 50 mg tablet 50 mg PO DAILY 10/08/24
tadalafil 5 mg tablet 5 mg PO DAILY 10/08/24
tamsulosin 0.4 mg capsule (Flomax) 0.4 mg PO DAILY 10/08/24
aspirin 81 mg chewable tablet 81 mg PO DAILY #30 tabs 10/09/24
Review of Systems
-
History Source: Patient
A 12 point ROS was completed and negative except as noted: Yes
Physical Exam
Vital Signs
Vital Signs
Temp Pulse Resp BP Pulse Ox
97.8 F 52 21 154/89 97
10/14/24 10:46 10/14/24 12:30 10/14/24 12:30 10/14/24 10:46 10/14/24 12:30
Physical Exam
General: No Apparent Distress and Conversant
HEENT: PERRLA
Respiratory: Clear; No Wheezes
Cardiac: S1/S2 and Regular Rhythm
GI: Soft and Non Tender
Musculoskeletal: No Edema
Skin: Warm and Dry; No Rash
Neuro: AO x 3
Psych: Calm
Laboratory Results
-
10/14/24 10:57
10/14/24 10:57
Laboratory Results
PT 15.6 Sec (11.4-14.6) H 10/14/24 11:02
INR 1.18 10/14/24 11:02
APTT 35.0 Sec (23.4-35.0) 10/14/24 11:02
Total Bilirubin 0.7 mg/dl (0.2-1.3) 10/14/24 10:57
AST 28 U/L (17-59) 10/14/24 10:57
ALT 28 U/L (0-50) 10/14/24 10:57
Alkaline Phosphatase 74 U/L (38-126) 10/14/24 10:57
Troponin I < 0.012 ng/ml 10/14/24 10:57
Data Reviewed
-
Diagnostic Radiology: Report Reviewed by me
Lab Data: Labs Reviewed by me
Impression/Plan
-
Mr. Eliel Batista is a 78 yo man with hx essential HTN, BPH, recent admission 10/08 - 10/09 for generalized complaints with increased Troponin with plans for outpatient stress test presents to the ER after an episode of syncope.
Triage VS: T 97.8, P 75, RR 16, BP 154/89, SpO2 98%, Trop < 0.012
LABS: WBC 8.8, Hg 13.5, PLT 367, Na 135, K+ 4.5, Cl 100, BUN 18, Cr 0.7, Glucose 147, T Bili 0.7, AST 28, ALT 28, Alk Phos 74
EKG: afib with RBBB
MAR: heparin gtt initiated
TTE 10/08/24:
CONCLUSIONS
Normal left ventricular function
estimated ejection fraction 50 to 55%.
Mild concentric left ventricular hypertrophy.
Mild mitral regurgitation.
Trace aortic regurgitation.
No prior study for comparison
Indications:
abnormal troponin
New onset Atrial Fibrillation
Syncope
-Recent Hospitalization with elevated Troponin with plans for outpatient stress test
-admit to telemetry
-initial Trop < 0.012 - will trend
-appreciate cardiology
-given syncope and patient hit head will order head CT pre heparin gtt
-NPO after MN for NM stress test
-continue [employer] aspirin
Essential HTN
-[employer] Lisinopril
Depression/Anxiety
-[employer] Zoloft
BPH
-[employer] Flomax
DVT PPx Heparin gtt
FULL CODE
[2024-10-14 14:06] LABS: Magnesium 2.1 mg/dl (1.6-2.3)
[2024-10-14] MEDS: HEPARIN 25000 UNITS/250 ML IV (14:24)
[2024-10-14] MEDS: HEPARIN 4000 UNITS IV (14:24)
--- NOTE | 2024-10-14 20:30 | TRANSFER ---
pt arrived from ED on stretcher accompanied by ER staff. pt was an assist of 1 to ambulate to the bed. pt arrived with heparin gtt running in R AC at 10 ml/hr (1000 units/hr). pt is AAOx3, VSS. call gallardo within reach, oriented to room, resting
comfortably at present. will continue to monitor.
[2024-10-14 21:06] LABS: APTT 46.4 Sec (23.4-35.0)
[2024-10-14 21:17] LABS: Troponin I < 0.012 ng/ml
--- NOTE | 2024-10-15 02:30 | PTCARENOTE ---
Addendum entered by Emani Fox 10/15/24 05:06:
pt still dropping to low 30s consistently while sleeping. per [employer] [address] orders- blood sugar obtained (116), EKG obtained (afib with slow ventricular response), AM labs obtained, VSS. will continue to monitor closely.
Original Note:
pt HR dropping to 30s intermittently while asleep. pt does not complain of SOB or chest pain. resting comfortably without any symptoms upon assessment. [facility] [address] [employer] made aware, no new orders at this time.
[2024-10-15 03:18] LABS: APTT 57.2 Sec (23.4-35.0)
[2024-10-15 03:32] VITALS: BP 130/75
[2024-10-15 03:32] LABS: Troponin I < 0.012 ng/ml
--- NOTE | 2024-10-15 05:02 | W.PN.UPDATE ---
Update Note
Progress Note Update
RN notified [employer] HR went down to 30's while patient sleeping, Patient asymptomatic when RN woke him up with stable VS 130/75, HR 62, 99% RA, 98.0, 18, BS 116. Advised EKG which shows Afib with slow RVR and bundle branch block 51. no hx of sleep apnea.
Stress study due today, En[employer] Cracker on board. May benefit from sleep study for sleep apnea.
Awaiting labs.
[2024-10-15 05:03] LABS: Hematocrit 36.7 % (39.0-52.0); Hemoglobin 12.4 g/dL (13.0-18.0); Mean Corp Hgb Conc. 33.8 g/dL (33.0-37.0); Mean Corpuscular Hgb 31.6 pg (27.0-31.0); Mean Corpuscular Volume 93.4 fL (80.0-94.0); Mean Platelet Volume 9.2 fL (7.4-10.4); Platelet Count 308 10^3/uL (130-400); Red Blood Cell Count 3.93 10^6/uL (4.70-6.10); Red Cell Dist. Width 11.6 % (11.5-14.5); White Blood Cell Count 6.5 10^3/uL (4.8-10.8)
[2024-10-15 05:32] LABS: Blood Urea Nitrogen 15 mg/dl (9-20); Calcium 8.8 mg/dl (8.4-10.2); Carbon Dioxide 27 mmol/L (22-30); Chloride 104 mmol/L (98-107); Estimated Creatinine Clearance 98 ml/min; Glucose 113 mg/dl (70-99); Magnesium 2.2 mg/dl (1.6-2.3); Potassium 4.5 mmol/L (3.5-5.1); Sodium 137 mmol/L (135-145); eGFR > 60.00
[2024-10-15 06:20] LABS: Hepatitis C Antibody Negative (Negative)
[2024-10-15 06:26] LABS: Glucose - Point of Care 116 mg/dl (70-99)
[2024-10-15 07:20] VITALS: BP 153/91; BP 158/83; BP 158/90; PULSE 72; PULSE 75; PULSE 91
--- NOTE | 2024-10-15 10:09 | W.PN.HOSP.TC ---
Today's Communication/Plan
-
Stress test today
Assessment / Plan
Assessment / Plan
Physical exam:
General: Well Developed, Well Nourished and No Apparent Distress
HEENT: Normocephalic, Atraumatic and Moist Mucous Membranes
Respiratory: Clear to Auscultation; Negative Wheezes, Rales or Rhonchi
Cardiac: Regular Rhythm and S1/S2
GI: Soft, Nontender and Nondistended
Musculoskeletal: No Clubbing, No Cyanosis and No Edema
Neuro: Awake, Alert and Oriented, no neurological deficits
Psych: Calm
A/P:
Syncope:
Undergoing workup
Continue gambling monitor
Discussed with daughter at bedside
New onset atrial fibrillation:
Intrinsically rate controlled without medications
On heparin drip
Cardiology reviewed with EP
Elevated troponin:
Suspicion for non-[place] due to non-ischemic myocardial injury
Stress test pending
Hypertension:
His usual meds
Depression anxiety:
Antidepressant
DVT prophylaxis:
Heparin drip
CODE STATUS:
Full code
Anticipated Discharge: 24 - 48 hours
Subjective/Interval History
-
Date of Service: October 15, 2024
Denies chest pain or shortness of breath or syncope.
Objective Data
-
Labs:
Laboratory Results
10/15/24 10/15/24 10/15/24
03:02 04:51 09:41
WBC 6.5
Hgb 12.4 L
Hct 36.7 L
Plt Count 308
APTT 57.2 H Pending
Sodium 137
Potassium 4.5
Chloride 104
Carbon Dioxide 27
BUN 15
Creatinine 0.7
Glucose 113 H
Calcium 8.8
Vital Signs:
Vital Signs
Temp Pulse Resp BP Pulse Ox
97.7 F 75 18 158/90 99
10/15/24 07:20 10/15/24 07:20 10/15/24 07:20 10/15/24 07:20 10/15/24 08:05
I&O
10/14/24 10/15/24 10/16/24
06:59 06:59 06:59
Intake Total 480 / 480
Output Total 700 / 700
Balance -220 / -220
[2024-10-15] MEDS: FLOMAX 0.4 MG PO (11:45)
[2024-10-15] MEDS: ZOLOFT 50 MG PO (11:45)
[2024-10-15] MEDS: ZESTRIL 20 MG PO (11:45)
[2024-10-15 11:46] VITALS: BP 128/82
[2024-10-15] MEDS: HEPARIN 25000 UNITS/250 ML IV (11:46)
[2024-10-15] MEDS: LOW STRENGTH ASPIRIN 81 MG PO (11:46)
--- NOTE | 2024-10-15 13:34 | W.PN.CD ---
Today's Communication / Plan
-
Continue to monitor on telemetry
Await Lexiscan result
Impression / Plan
-
Syncope:
-short, several second prodrome-. 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 Exact etiology and cannot clear it. Possibility of bradycardia arrhythmia is a consideration in
this patient who has conduction disease with bifascicular block. On telemetry without prolonged pauses. Longest pause 2.4 seconds during hours of sleep.
-cause unknown, but I have concerns for rhythm cause due to his cardiac conduction disease (bifascicular block, and AFIB with bradycardia without meds)- should follow telemetry
-Continue to observe on telemetry for indication for pacing. Will also review with EP. If without clear indication for pacing then could consider longer-term outpatient monitoring.
AFIB, new diagnosis:
-type unknown
-[id number] score is 3 for age and HTN. Recommend Eliquis 5 mg PO BID (c/s CM for pricing)- start with heparin drip in meantime while we monitor telemetry and await stress test results. This requires intensive monitoring. Denies bleeding issues.
-rate-controlled without meds
.
Previous admission with very mild elevation in troponin of unclear etiology. Suspected non-[place] troponin with negative echo this admission with negative troponin follow-up Lexiscan ordered. Awaiting results
HTN:
-on lisinopril as OP- continue and monitor
Physical Exam
Vital Signs/Labs
Vital Signs
Temp Pulse Resp BP Pulse Ox
97.8 F 85 18 128/82 99
10/15/24 11:46 10/15/24 11:46 10/15/24 11:46 10/15/24 11:46 10/15/24 11:46
10/14/24 10/15/24 10/16/24
06:59 06:59 06:59
Actual Weight 85.729 kg
10/15/24 04:51
10/15/24 04:51
PT 15.6 Sec (11.4-14.6) H 10/14/24 11:02
INR 1.18 10/14/24 11:02
APTT 47.0 Sec (23.4-35.0) H 10/15/24 12:03
Magnesium 2.2 mg/dl (1.6-2.3) 10/15/24 04:51
LAB Results
10/14/24 10/14/24 10/15/24
10:57 20:47 03:02
Troponin I < 0.012 < 0.012 < 0.012
Physical Exam
Constitutional: No acute distress
Cardiovascular: Rhythm/rate is irregular
Respiratory: Respiratory effort normal
GI: Soft
Neuro/Psych: Alert
Data Reviewed
-
Date of Service: October 15, 2024
Medical Decision Making: Reviewed Test Results
X-Ray/CT/US/MRI/NUC/PET: Discussed with Patient
Medical Tests (PFT, Pathology etc): Image Personally Visualized and interpreted
Labs: Labs Reviewed by me
--- NOTE | 2024-10-15 15:18 | CM ---
Pt seen bedside. Initial assessment completed. Admitted for passing out at work. Pt had recent admission (10/08-10/09)
Pt reports he lives w/ spouse in a 2STH- 1 step to enter from garage, 2 steps to enter from the front of the home
Pt is independent w/ ambulation. Denies DME for daily functioning. 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
Denies SNF/VN/PT hx
Address, point of contact and insurance verified
PCP: Dr. Holt
Pharmacy: [facility]
Plan: Anticipate home; no needs
[2024-10-15 16:06] VITALS: BP 136/90
--- NOTE | 2024-10-15 16:17 | PTCARENOTE ---
Pt AAO x3, [place] well, OOB to BR with minimal assistance (with IV pole); kim well, no c/o weakness/dizziness. VSS. Telemetry:A fib with PVC's; occ major to 40's when sleeping. On room air- pulse ox 99%, no SOB noted. Abd large, soft, kim PO well.
Voiding in BR without difficulty. Heparin drip currently @ 1600 units/hr (16 ml/hr) infusing via Rt AC site without sx of infiltration. Resting quietly at present. Will continue to monitor.
--- NOTE | 2024-10-15 17:50 | W.PN.UPDATE ---
Update Note
Progress Note Update
EP Consult Note
Syncope is of unknown etiology
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
Chronic bifascicular block
Recent GI Sx with abdominal pain/CP and abnormal troponin
Echo with LVEF 50-55% and mild valve disease
Stress test today not entirely normal
Suggest:
Not enough for pacemaker with single syncopal episode
Suggest more telemetry, if tele negative in next 24-28 hrs then consider
A) EP Study with EP guided therapy, this will be most helpful if in NSR
B) Home with a 30 d monitor
Defer abnormal stress test evaluation to Dr. Kaplan
- If cath pursued I would stilll pursue the EP evaluation above
57 min spent in patient care today. Chart review, review prior and current testing, review tele and ekg, see/examine patient, communicate with hospitalist and Dr. Kaplan.
[2024-10-15 19:07] LABS: APTT 59.4 Sec (23.4-35.0)
[2024-10-15 19:20] VITALS: BP 126/60
[2024-10-15 23:40] VITALS: BP 107/78
[2024-10-16] VITALS (8 sets, daily range): BP systolic 112–149; BP diastolic 69–89; PULSE 56–96
[2024-10-16] MEDS: HEPARIN 25000 UNITS/250 ML IV ×2 (02:00→18:12)
[2024-10-16 02:31] LABS: APTT 124.1 Sec (23.4-35.0)
--- NOTE | 2024-10-16 09:08 | W.PN.HOSP.TC ---
Today's Communication/Plan
-
Cardiac monitoring. Cardiology reeval.
Assessment / Plan
Assessment / Plan
Physical exam:
General: Well Developed, Well Nourished and No Apparent Distress
HEENT: Normocephalic, Atraumatic and Moist Mucous Membranes
Respiratory: Clear to Auscultation; Negative Wheezes, Rales or Rhonchi
Cardiac: Regular Rhythm and S1/S2
GI: Soft, Nontender and Nondistended
Musculoskeletal: No Clubbing, No Cyanosis and No Edema
Neuro: Awake, Alert and Oriented, no neurological deficits
Psych: Calm
A/P:
Syncope:
Undergoing workup
Continue night monitor
Discussed with daughter at bedside yesterday
Plan to go for EP study likely on Friday. EP recommends either EP study with EP guided therapy or home with a 30-day monitor after cardiac monitoring over the weekend.
Clinical cardiology to evaluate if further ischemic workup would be required on Friday.
New onset atrial fibrillation:
Intrinsically rate controlled without medications
On heparin drip
Cardiology reviewed with EP
Elevated troponin on recent hospitalization with normal troponin at this time:
Suspicion for non-[place] due to non-ischemic myocardial injury back then
Stress test abnormal-->f/u cardio recommendations
Hypertension:
His usual meds
Depression anxiety:
Antidepressant
DVT prophylaxis:
Heparin drip
CODE STATUS:
Full code
Total time spent on today's encounter was 52 minutes which included time spent in counseling the patient/family regarding diagnosis and treatment plan as listed above, goals of care, and symptom management. Case was discussed with nursing staff,
specialists, and care coordinators/case management. All labs and imaging personally reviewed by me. Remainder the time spent in detailed review of previous records, lab data, imaging, and other medical provider documentation.
Anticipated Discharge: > 48 hours
Subjective/Interval History
-
Date of Service: October 16, 2024
Patient denies any chest pain or shortness of breath. No further syncope
Objective Data
-
Labs:
Laboratory Results
10/16/24 10/16/24
02:11 08:57
WBC Pending
Hgb Pending
Hct Pending
Plt Count Pending
APTT 124.1 H Pending
Sodium Pending
Potassium Pending
Chloride Pending
Carbon Dioxide Pending
BUN Pending
Creatinine Pending
Glucose Pending
Calcium Pending
Vital Signs:
Vital Signs
Temp Pulse Resp BP Pulse Ox
98.0 F 67 16 122/79 99
10/16/24 03:35 10/16/24 03:35 10/16/24 03:35 10/16/24 03:35 10/16/24 03:35
I&O
10/15/24 10/16/24 10/17/24
06:59 06:59 06:59
Intake Total 480 / 480 1018 / 1018 480 / 480
Output Total 700 / 700 200 / 200
Balance -220 / -220 818 / 818 480 / 480
[2024-10-16 09:19] LABS: APTT 126.3 Sec (23.4-35.0)
[2024-10-16 09:23] LABS: Hemoglobin 14.9 g/dL (13.0-18.0); Mean Corp Hgb Conc. 34.7 g/dL (33.0-37.0); Mean Corpuscular Hgb 32.6 pg (27.0-31.0); Mean Corpuscular Volume 94.1 fL (80.0-94.0); Mean Platelet Volume 9.1 fL (7.4-10.4); Platelet Count 363 10^3/uL (130-400); Red Blood Cell Count 4.57 10^6/uL (4.70-6.10); Red Cell Dist. Width 11.9 % (11.5-14.5); White Blood Cell Count 11.1 10^3/uL (4.8-10.8)
[2024-10-16] MEDS: ZOLOFT 50 MG PO (09:29)
[2024-10-16] MEDS: FLOMAX 0.4 MG PO (09:29)
[2024-10-16] MEDS: MIRALAX 17 GRAMS PO (09:29)
[2024-10-16] MEDS: LOW STRENGTH ASPIRIN 81 MG PO (09:29)
[2024-10-16] MEDS: SENOKOT-S 1 TABLET PO (09:29)
[2024-10-16 10:44] LABS: Blood Urea Nitrogen 15 mg/dl (9-20); Calcium 8.9 mg/dl (8.4-10.2); Carbon Dioxide 25 mmol/L (22-30); Chloride 100 mmol/L (98-107); Estimated Creatinine Clearance 86 ml/min; Glucose 137 mg/dl (70-99); Potassium 4.2 mmol/L (3.5-5.1); Sodium 137 mmol/L (135-145); eGFR > 60.00
[2024-10-16] MEDS: ZESTRIL 20 MG PO (10:47)
--- NOTE | 2024-10-16 13:39 | W.PN.CD ---
Today's Communication / Plan
-
Can keep on heparin in anticipation of procedure on Friday with eventual transition to Eliquis.
Patient remained stable on telemetry
Continue to monitor on telemetry. If telemetry remains unremarkable then plan is for EP study on Friday as outlined.
Issues reviewed with the patient also spoke with patient's by phone
Impression / Plan
-
Syncope:
-short, several second prodrome-. 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 Exact etiology and cannot clear it. Possibility of bradycardia arrhythmia is a consideration in
this patient who has conduction disease with bifascicular block. On telemetry without prolonged pauses. Longest pause 2.4 seconds during hours of sleep.
-cause unknown, but I have concerns for rhythm cause due to his cardiac conduction disease (bifascicular block, and AFIB with bradycardia without meds)- should follow telemetry
-Issues reviewed with EP. Will continue to monitor on telemetry through the weekend. If no cause of syncope noted then will plan for EP study on Friday and possible pacemaker if EP study abnormal. If EP study is unremarkable may consider
implantable loop versus 30-day monitor.
.
AFIB, new diagnosis:
-type unknown
-[id number] score is 3 for age and HTN. Recommend Eliquis 5 mg PO BID (c/s CM for pricing)- start with heparin drip in meantime while we monitor telemetry and await stress test results. This requires intensive monitoring. Denies bleeding issues.
-rate-controlled without meds
.
Previous admission with very mild elevation in troponin of unclear etiology. Suspected non-[place] troponin with negative echo this admission with negative troponin follow-up Lexiscan ordered. Awaiting results
HTN:
-on lisinopril as OP- continue and monitor
Physical Exam
Vital Signs/Labs
Vital Signs
Temp Pulse Resp BP Pulse Ox
97.9 F 80 20 146/83 98
10/16/24 11:50 10/16/24 11:50 10/16/24 11:50 10/16/24 11:50 10/16/24 11:50
10/15/24 10/16/24 10/17/24
06:59 06:59 06:59
Actual Weight 85.729 kg
10/16/24 08:57
10/16/24 08:57
PT 15.6 Sec (11.4-14.6) H 10/14/24 11:02
INR 1.18 10/14/24 11:02
APTT 126.3 Sec (23.4-35.0) H 10/16/24 08:57
Magnesium 2.2 mg/dl (1.6-2.3) 10/15/24 04:51
LAB Results
10/14/24 10/14/24 10/15/24
10:57 20:47 03:02
Troponin I < 0.012 < 0.012 < 0.012
Physical Exam
Constitutional: No acute distress
Cardiovascular: Rhythm & rate is regular
Respiratory: Lungs clear to auscul., Wheeze Absent and Rhonchi Present
GI: Soft and Non tender
Neuro/Psych: Alert
Data Reviewed
-
Date of Service: October 16, 2024
Medical Decision Making: Reviewed Test Results
Echo: Report Reviewed by me
Medical Tests (PFT, Pathology etc): Report Reviewed by me
Labs: Labs Reviewed by me
[2024-10-16 16:30] LABS: APTT 81.8 Sec (23.4-35.0)
[2024-10-16] MEDS: OCEAN, SALINE MIST 1 SPRAYS NASAL (21:34)
[2024-10-16 23:22] LABS: APTT 115.6 Sec (23.4-35.0)
[2024-10-17] VITALS (7 sets, daily range): BP systolic 115–143; BP diastolic 65–80; PULSE 69–74
[2024-10-17] MEDS: ZESTRIL 20 MG PO (08:31)
[2024-10-17] MEDS: FLOMAX 0.4 MG PO (08:31)
[2024-10-17] MEDS: LOW STRENGTH ASPIRIN 81 MG PO (08:31)
[2024-10-17] MEDS: ZOLOFT 50 MG PO (08:32)
[2024-10-17 08:33] LABS: Hematocrit 37.5 % (39.0-52.0); Hemoglobin 12.6 g/dL (13.0-18.0); Mean Corp Hgb Conc. 33.6 g/dL (33.0-37.0); Mean Corpuscular Hgb 31.4 pg (27.0-31.0); Mean Corpuscular Volume 93.5 fL (80.0-94.0); Mean Platelet Volume 9.8 fL (7.4-10.4); Platelet Count 303 10^3/uL (130-400); Red Blood Cell Count 4.01 10^6/uL (4.70-6.10); White Blood Cell Count 8.7 10^3/uL (4.8-10.8)
[2024-10-17 08:35] LABS: APTT 76.8 Sec (23.4-35.0)
--- NOTE | 2024-10-17 08:37 | W.PN.HOSP.TC ---
Today's Communication/Plan
-
IV heparin drip. Cardiac monitoring. EP reeval tomorrow
Assessment / Plan
Assessment / Plan
Physical exam:
General: Well Developed, Well Nourished and No Apparent Distress
HEENT: Normocephalic, Atraumatic and Moist Mucous Membranes
Respiratory: Clear to Auscultation; Negative Wheezes, Rales or Rhonchi
Cardiac: Irregular rate and rhythm and S1/S2
GI: Soft, Nontender and Nondistended
Musculoskeletal: No Clubbing, No Cyanosis and No Edema
Neuro: Awake, Alert and Oriented, no neurological deficits
Psych: Calm
A/P:
Syncope:
Undergoing workup
Continue cardiac monitoring
On review of telemetry no significant cardiac pauses noted.
Discussed with family prior
EP recommends either EP study with EP guided therapy on Friday or home with a 30-day monitor after cardiac monitoring over the .
Clinical cardiology to evaluate if further ischemic workup would be required on Friday but seems less likely.
New onset atrial fibrillation:
Intrinsically rate controlled without medications
On heparin drip
Cardiology reviewed with EP
Elevated troponin on recent hospitalization with normal troponin this time:
Suspicion for non-[place] due to non-ischemic myocardial injury back then
Stress test abnormal but probably nothing acute-->f/u cardio recommendations
Constipation:
Resume his home medication, Linzess
Hypertension:
His usual meds
Depression anxiety:
Antidepressant
DVT prophylaxis:
Heparin drip
CODE STATUS:
Full code
Total time spent on today's encounter was 52 minutes which included time spent in counseling the patient/family regarding diagnosis and treatment plan as listed above, goals of care, and symptom management. Case was discussed with nursing staff,
specialists, and care coordinators/case management. All labs and imaging personally reviewed by me. Remainder the time spent in detailed review of previous records, lab data, imaging, and other medical provider documentation.
Anticipated Discharge: 24 - 48 hours
Subjective/Interval History
-
Date of Service: October 17, 2024
Patient denies any chest pain or shortness of breath. No further syncope. He does have some constipation.
Objective Data
-
Labs:
Laboratory Results
10/16/24 10/17/24
23:05 07:02
WBC 8.7
Hgb 12.6 L
Hct 37.5 L
Plt Count 303
APTT 115.6 H Pending
Sodium Pending
Potassium Pending
Chloride Pending
Carbon Dioxide Pending
BUN Pending
Creatinine Pending
Glucose Pending
Calcium Pending
Vital Signs:
Vital Signs
Temp Pulse Resp BP Pulse Ox
98.2 F 69 20 142/77 100
10/17/24 07:40 10/17/24 08:31 10/17/24 07:40 10/17/24 08:31 10/17/24 07:40
I&O
10/16/24 10/17/24 10/18/24
06:59 06:59 06:59
Intake Total 1018 / 1018 2420 / 2420
Output Total 200 / 200 975 / 975
Balance 818 / 818 1445 / 1445
--- NOTE | 2024-10-17 08:45 | W.PN.UPDATE ---
Update Note
Progress Note Update
No symptoms or additional arrhythmias reported overnight.
Patient is comfortable. No change in exam
If telemetry remained stable overnight then we will plan for EP study in AM.
N.p.o. after midnight
[2024-10-17 09:00] LABS: Blood Urea Nitrogen 14 mg/dl (9-20); Calcium 8.6 mg/dl (8.4-10.2); Carbon Dioxide 28 mmol/L (22-30); Chloride 100 mmol/L (98-107); Estimated Creatinine Clearance 86 ml/min; Glucose 131 mg/dl (70-99); Sodium 136 mmol/L (135-145); eGFR > 60.00
[2024-10-17] MEDS: HEPARIN 25000 UNITS/250 ML IV (10:47)
[2024-10-17] MEDS: NON-FORMULARY ITEM 1 UNIT PO (14:38)
[2024-10-17 14:58] LABS: APTT 71.8 Sec (23.4-35.0)
[2024-10-17 23:09] LABS: APTT 97.9 Sec (23.4-35.0)
[2024-10-18] VITALS (19 sets, daily range): BP systolic 98–146; BP diastolic 50–88; PULSE 61–73
[2024-10-18] MEDS: HEPARIN 25000 UNITS/250 ML IV (02:49)
[2024-10-18 06:21] LABS: Hematocrit 35.7 % (39.0-52.0); Mean Corp Hgb Conc. 33.6 g/dL (33.0-37.0); Mean Corpuscular Hgb 31.4 pg (27.0-31.0); Mean Corpuscular Volume 93.5 fL (80.0-94.0); Mean Platelet Volume 9.4 fL (7.4-10.4); Platelet Count 261 10^3/uL (130-400); Red Blood Cell Count 3.82 10^6/uL (4.70-6.10); White Blood Cell Count 8.3 10^3/uL (4.8-10.8)
[2024-10-18 06:30] LABS: Blood Urea Nitrogen 16 mg/dl (9-20); Calcium 8.6 mg/dl (8.4-10.2); Carbon Dioxide 26 mmol/L (22-30); Chloride 101 mmol/L (98-107); Estimated Creatinine Clearance 86 ml/min; Glucose 132 mg/dl (70-99); Potassium 4.6 mmol/L (3.5-5.1); Sodium 135 mmol/L (135-145); eGFR > 60.00
[2024-10-18] MEDS: FLOMAX 0.4 MG PO (08:39)
[2024-10-18] MEDS: LOW STRENGTH ASPIRIN 81 MG PO (08:39)
[2024-10-18] MEDS: ZOLOFT 50 MG PO (08:39)
[2024-10-18] MEDS: ZESTRIL 20 MG PO (08:39)
--- NOTE | 2024-10-18 09:59 | W.PN.HOSP.TC ---
Today's Communication/Plan
-
EP study today
Assessment / Plan
Assessment / Plan
Gen-AAOx3, NAD
HEENT-NC, AT, anicteric, clear oral mm
Neck-supple
CV-reg, no M, +S1/S2
Lungs-clear B/L
Abd-soft, NT, ND
Ext-no edema
Musculoskeletal-no cyanosis, clubbing
Skin-warm and dry
Neuro-grossly non-focal
Psych-calm, cooperative
Syncope:
Undergoing workup
Continue cardiac monitoring
On review of telemetry no significant cardiac pauses noted.
Discussed with family prior
For EP study today per cardiology. Discussed with Dr. Cook.
New onset atrial fibrillation:
Intrinsically rate controlled without medications
On heparin drip
Cardiology reviewed with EP
Elevated troponin on recent hospitalization with normal troponin this time:
Suspicion for non-[place] due to non-ischemic myocardial injury back then
Stress test abnormal but probably nothing acute-->f/u cardio recommendations
Constipation:
Resume his home medication, Linzess
Essential hypertension:
His usual meds
Depression anxiety:
Antidepressant
DVT prophylaxis:
Heparin drip
Full code
Anticipated Discharge: Within 24 hours
Subjective/Interval History
-
Date of Service: October 18, 2024
Patient seen and examined. No complaints.
Objective Data
-
Labs:
Laboratory Results
10/17/24 10/18/24
22:44 05:55
WBC 8.3
Hgb 12.0 L
Hct 35.7 L
Plt Count 261
APTT 97.9 H 95.0 H
Sodium 135
Potassium 4.6
Chloride 101
Carbon Dioxide 26
BUN 16
Creatinine 0.8
Glucose 132 H
Calcium 8.6
Vital Signs:
Vital Signs
Temp Pulse Resp BP Pulse Ox
97.6 F 58 20 136/78 100
10/18/24 06:58 10/18/24 08:39 10/18/24 06:58 10/18/24 08:39 10/18/24 08:37
I&O
10/17/24 10/18/24 10/19/24
06:59 06:59 06:59
Intake Total 2420 / 2420 1615 / 1615
Output Total 975 / 975 1000 / 1000
Balance 1445 / 1445 615 / 615
Review of Systems
-
History Source: Patient
All other systems: Reviewed and negative
--- NOTE | 2024-10-18 14:05 | W.PN.CD ---
Today's Communication / Plan
-
- EPS with +/- PPM and +/- ICD or ILR
Impression / Plan
-
Syncope:
- Unclear etiology
- Does have severe bradycardia and conduction disease
- Has AF and has wide complex arrhythmia
- EPS to rule out VT
- If no abnormality noted then can consider ILR
.
AFIB, new diagnosis:
-type unknown
-[id number] score is 3 for age and HTN. Recommend Eliquis 5 mg PO BID (c/s CM for pricing)
-Stop Heparin for the possible device.
-rate-controlled without meds with conduction disease
.
Previous admission with very mild elevation in troponin of unclear etiology. Suspected non-[place] troponin with negative echo this admission with negative troponin
- follow-up Lexiscan - fixed defect likely artifact
HTN:
-on lisinopril as OP- continue and monitor
Physical Exam
Vital Signs/Labs
Vital Signs
Temp Pulse Resp BP Pulse Ox
98.7 F 56 11 120/73 96
10/18/24 11:53 10/18/24 13:50 10/18/24 13:50 10/18/24 13:50 10/18/24 13:54
10/18/24 05:55
10/18/24 05:55
PT 15.6 Sec (11.4-14.6) H 10/14/24 11:02
INR 1.18 10/14/24 11:02
APTT 95.0 Sec (23.4-35.0) H 10/18/24 05:55
Magnesium 2.2 mg/dl (1.6-2.3) 10/15/24 04:51
Physical Exam
Constitutional: No acute distress and Comfortable
EENT: Anicteric and Moist mucous membranes
Cardiovascular: Pedal edema is absent, JVD pressure is normal, Rhythm/rate is irregular and Systolic murmur present
Respiratory: Respiratory effort normal, Lungs clear to auscul., Wheeze Absent and Crackles Absent
GI: Soft, Non tender and Normal bowel sounds
Neuro/Psych: Alert, Oriented and AO x 3
Data Reviewed
-
Date of Service: October 18, 2024
Medical Decision Making: Reviewed Test Results, Independent Historian Assessment, Test Interpretation and Review of Case with other Provider
EKG: Tracing Personally Visualized and interpreted
Echo: Report Reviewed by me
Labs: Labs Reviewed by me
Old Records: Reviewed
--- NOTE | 2024-10-18 18:30 | ITS.EPS ---
Tax Consultant - EPS Report
EPS
Procedure Report:
Electrophysiology study:
Mr. Batista is a very pleasant 78 yr old gentleman with h/o recurrent syncope including syncope without any prodrome is noted to have continued high burden of non-sustained VT and severe bradycardia along with pauses and newly identified atrial
fibrillation is here for EP evaluation and arrhythmia induction for electrophysiology (EP) study and if ventricular arrhythmia is inducible then possible ICD placement.
Date of the Procedure:
10/18/2024
Indications: Tachycardia
Pre-Operative Diagnosis: History of ventricular tachycardia and recurrent syncope
Post-Operative Diagnosis: Ventricular tachycardia
Procedure Performed: EP study with arrhythmia induction
Performing physician:
Burak Dutton MD
Anesthesia:
See anesthesia records
Detailed Description of the Procedure:
Written informed consent was obtained from the patient after a full explanation of the risks and benefits of the procedure including the risks of sedation and anesthesia.
The patient was brought to the electrophysiology laboratory in stable condition in fasting state. Continuous electrocardiographic and hemodynamic monitoring was initiated. The initial rhythm was normal sinus rhythm.
The procedure site was meticulously prepared with surgical scrub and allowed to dry with no pooling. Sterile draping was applied to cover the procedure site. The image intensifier was draped with sterile bag and positioned over the patient.
After infusion of local anesthetic, vascular access was obtained under ultrasound guidance and sheaths were placed over guide wire as detailed below.
Baseline intervals (milliseconds):
Atrial fibrillation with AF waves present.
QRS duration: 150
QTc interval: 436
HV interval: 58
Q onset to RVa: 0
Sinus Node Function:
Sinus node function could not be tested due to atrial fibrillation.
Atrioventricular Esther Function:
AV esther function couldnot be tested due to AF and unable to capture atrial chamber. The conduction was slow without any negative chronotropic agents with fascicular block indicating both AV esther and infra esther disease.
Ventricular Function:
Single ventricular extrastimuli were delivered following drive train of 600 msec, the ventricular ERP was determined <240 msec. The ventricular electrical functions are within acceptable range.
Arrhythmia Induction:
Programmed stimulation including single, double and triple extrastimuli were delivered from the RVa. There was easily inducible non-sustained ventricular tachycardia with single and double extrastimuli.
The VT was induced at 600/240/240/230 and it was fast and monomorphic that turned to polymorphic later before terminating.
The EP study was positive for ventricular tachycardia induced with programmed stimulation.
Procedure End
Dual chamber ICD was recommended.
Summary:
A positive electrophysiology study with induction of Ventricular tachycardia. With VT and syncope, ICD placement is recommended.
--- NOTE | 2024-10-18 18:30 | ITS.CL.ICD ---
Mold Setter - ICD
Implantable Cardioverter Defibrillator
Procedure Report:
Dual Chamber Implantable Cardioverter Defibrillator Placement:
Mr. Batista is a 78-year-old gentleman with recurrent syncope with non-sustained VT along with severe conduction disease s/p EP study that was easily positive for inducible VT and has noted to have baseline bradycardia. He has a class I indication for
pacemaker for bradycardia with syncope and is getting ICD for easily inducible ventricular tachycardia.
Indications: Sick sinus syndrome with ventricular tachycardia.
Date of the Procedure:
10/18/2024
Pre-Operative Diagnosis: sick sinus syndrome with ventricular tachycardia.
Post-Operative Diagnosis: Ventricular tachycardia and sick sinus syndrome
Procedure Performed: DUAL CHAMBER IMPLANTABLE CARDIOVERTER DEFIBRILLATOR IMPLANTATION
Performing Physician:
Burak Dutton MD
Anesthesia:
See anesthesia report
Detailed Description of the Procedure:
The patient was identified using hospital identification and informed consent obtained for the procedure. The risks were explained including, but not limited to: Bleeding, infection, arrhythmia, stroke, vascular/cardiac/lung puncture, surgery,
pacemaker dependency/device malfunction. All questions were answered.
The patient was brought to the electrophysiology laboratory in stable condition in fasting state. Continuous electrocardiographic and hemodynamic monitoring was initiated. The initial rhythm was atrial fibrillation.
The procedure site was meticulously prepared with surgical scrub and allowed to dry with no pooling. Sterile draping was applied to cover the procedure site. The image intensifier was draped with sterile bag and positioned over the patient.
The left infra-clavicular region was prepped and draped in the usual sterile fashion. Local anesthesia was administered subcutaneously using 1% lidocaine / Bupivacaine. The left cephalic vein cut-down was performed with an incision at the
delto-pectoral groove, and vascular sheaths were introduced for lead access. These were advanced into the right ventricle and the right atrium.
The right ventricular lead was secured in position with an active fixation technique at the apical septal location. There were low sensing notd in most of the RV cavity indicating scarring of the RV chamber. The RV was able to capture with good
threshold but the sensing QRS was low. Multiple locations were tested with similar results. Finally at inferior apical septal location had adequate signals and were selected for lead placement.
The RA lead was attached in the right atrial appendage with active fixation.
A TYRX pouch was installed for long duration of the procedure.
There was excellent sensing, pacing, and impedance from the leads, with no diaphragmatic stimulation at 10 V output.�Bovie cautery, antibiotics, and fluoroscopy were used.
The sheath was withdrawn, and the thresholds remained acceptable. The lead was secured in position at the venous entry site with 2-0 Ethibond. A pocket was fashioned contiguous to the incision. The electrode terminals were connected to the pulse
generator, which was placed into the pocket. The wound was irrigated thoroughly with antibiotic solution and closed in 3 layers using 2-0 VLoc sutures followed by 2 layers of Biosyn sutures. Steri-Strips and a bandage were applied externally.�
Procedure End:
The procedure was tolerated well. A bandage was applied to the incision area.
Estimated Blood loss:
15 cc
Fluoro time:
11min / 24.16 mGy
Specimens Removed:
No cultures and no specimens were obtained. No intraoperative pathology was identified.
Urine output:
None
Packs / Drains/ Tubes:
None
Instrument / Sponge Count Correct:
Yes
Complications of the Procedure:
None
Condition of Patient at Time of Transfer:
Hemodynamically stable with no neurological or vascular compromise.
Device information:�
Generator: [employer]; Model: [id number]; Serial # [id number]�
Atrial Lead: [employer]; Model: 5076-58; Serial # [id number]�
Measured data in the right atrium was sensing of 1.8 mV of AF waves, impedance of 620 ohms and threshold not tested due to AF.�
RV Lead: [employer] (TTR); Model: 6935M-62; Serial # [id number]
Measured data in the RV lead was sensing of 8 mV, impedance of 600 ohms and threshold of 0.8 V at 0.4ms�
PROGRAMMING PARAMETERS:�
Bernardino parameter settings were DDDR 50-130 bpm. �
��������������� Mode switch: On
��������������� Paced AV delay: 130 ms
��������������� Sensed AV delay: 100 ms
��������������� Rate Adaptive A-V Interval: Off
Mode switched to VVI
Output parameters:
������������������������������� Amplitude (V)������������������� Pulse Width (ms)������������� Sensitivity (mV)
��������������� RA: ������� 3.5 ������������������������ ��������������� 0.4������������������������� ��������������� 0.3
��������������� RV:�������� 3.5������������������������� ��������������� 0.4������������������������� ��������������� 0.3
Tachy parameter settings:
��������������� SVT discrimination: On
��������������� AF/AFl: On
��������������� SVT limit: 260 msec
��������������� VT zone:
������������������������������� Slow VT: 150 - 188 bpm --> Monitor
������������������������������� Fast VT/VF: >188 bpm --> Shock x6 (ATP before and during)
�
Summary:
Successful implantation of MRI compatible dual chamber Medtronic Implantable Cardioverter Defibrillator.�
Results/Recommendations:
-Please follow up CXR�
1. Please provide patient with adequate pain control�
Instructions to be given to patient:�
- Please follow up with [facility] at [address] [place] [address] ([phone]) to get your wound checked within 14 days of your discharge.
- Do not soak incision site until after it is evaluated at cardiology clinic. OK to showers followed by dab dry the area. No baths or swimming until then. Sponge baths are OK.�
- Allow 'steri strips' to fall off on their own�
- Do not lift left elbow above shoulder, particularly with sudden jerking movements, for 1 month�
- Do not lift anything weighing more than 5 pounds with the left arm for 1 month�
- If you notice any fevers, shortness of breath, lightheadedness, chest pain, or worsening swelling in the wound site, please contact the arrhythmia clinic, contact your performance improvement analyst, or present to the hospital for evaluation.�
Burak Dutton MD
Electrophysiology
--- NOTE | 2024-10-18 18:37 | PTCARENOTE ---
Pt for transfer to IVU/2256 post- phlebotomist lab assistant/EP studies. Report called to Jada CLEMONS. Pt's own Linzess sent with pt belongings (in black zippered kit).
--- NOTE | 2024-10-18 21:48 | PTCARENOTE ---
pt. received from EP lab post ICD implant. pt. AOx3, no complaints of pain at this time. EKG completed and placed in pt chart. Immobilizer on on left side. CXR completed. Abx to be given. This RN explained POC, pt. verbalizes understanding. Pt. now
ambulating in room independently with no difficulty. Call gallardo within reach. Continuing to monitor at this time.
[2024-10-18] MEDS: ANCEF 5 IV (22:47)
[2024-10-18] MEDS: TYLENOL 650 MG PO (22:48)
[2024-10-19] VITALS (7 sets, daily range): BP systolic 134–149; BP diastolic 76–95; PULSE 64–67
[2024-10-19] MEDS: ANCEF 5 IV (04:51)
[2024-10-19 05:19] LABS: Hematocrit 38.7 % (39.0-52.0); Hemoglobin 13.3 g/dL (13.0-18.0); Mean Corp Hgb Conc. 34.4 g/dL (33.0-37.0); Mean Corpuscular Hgb 31.6 pg (27.0-31.0); Mean Corpuscular Volume 91.9 fL (80.0-94.0); Mean Platelet Volume 9.8 fL (7.4-10.4); Platelet Count 300 10^3/uL (130-400); Red Blood Cell Count 4.21 10^6/uL (4.70-6.10); White Blood Cell Count 8.7 10^3/uL (4.8-10.8)
[2024-10-19 05:42] LABS: Blood Urea Nitrogen 17 mg/dl (9-20); Calcium 8.8 mg/dl (8.4-10.2); Carbon Dioxide 21 mmol/L (22-30); Chloride 103 mmol/L (98-107); Estimated Creatinine Clearance 115 ml/min; Glucose 180 mg/dl (70-99); Potassium 4.9 mmol/L (3.5-5.1); Sodium 136 mmol/L (135-145); eGFR > 60.00
[2024-10-19] MEDS: LOW STRENGTH ASPIRIN 81 MG PO (08:21)
[2024-10-19] MEDS: ZOLOFT 50 MG PO (08:21)
[2024-10-19] MEDS: FLOMAX 0.4 MG PO (08:21)
[2024-10-19] MEDS: ZESTRIL 20 MG PO (08:21)
--- NOTE | 2024-10-19 10:54 | W.PN.HOSP.TC ---
Today's Communication/Plan
-
Interrogate ICD
Discharge
Assessment / Plan
Assessment / Plan
Gen-AAOx3, NAD
HEENT-NC, AT, anicteric, clear oral mm
Neck-supple
CV-reg, no M, +S1/S2
Lungs-clear B/L
Abd-soft, NT, ND
Ext-no edema
Musculoskeletal-no cyanosis, clubbing
Skin-warm and dry
Neuro-grossly non-focal
Psych-calm, cooperative
Syncope -suspect due to ventricular tachycardia. EP study confirmed inducible ventricular tachycardia, initially monomorphic then polymorphic.
ICD placed 10/18.
Medtronic to interrogate device prior to discharge as per cardiology.
Metoprolol to start today.
Anticipate discharge today.
New onset atrial fibrillation:
Intrinsically rate controlled without medications
Discharge on Eliquis, discussed with cardiology.
Elevated troponin on recent hospitalization with normal troponin this time:
Suspicion for non-AK due to non-ischemic myocardial injury back then
Stress test 10/15/2024 shows small to moderate-sized fixed perfusion defects involving the inferior and inferior apical valadez. Follow-up with cardiology after discharge.
Constipation:
Resume his home medication, Linzess
Essential hypertension:
His usual meds
Depression anxiety:
Antidepressant
Full code
Dispo -stable for discharge this afternoon as per cardiology. Outpatient follow-up.
32-minute spent in discharge process.
Anticipated Discharge: Today
Subjective/Interval History
-
Date of Service: October 19, 2024
Patient seen and examined. No complaints.
Objective Data
-
Labs:
Laboratory Results
10/19/24 10/19/24
04:50 06:00
WBC 8.7
Hgb 13.3
Hct 38.7 L
Plt Count 300
APTT Cancelled
Sodium 136
Potassium 4.9
Chloride 103
Carbon Dioxide 21 L
BUN 17
Creatinine 0.6 L
Glucose 180 H
Calcium 8.8
Vital Signs:
Vital Signs
Temp Pulse Resp BP Pulse Ox
98.8 F 63 18 142/95 98
10/19/24 08:00 10/19/24 08:15 10/19/24 08:00 10/19/24 08:03 10/19/24 08:00
I&O
10/18/24 10/19/24 10/20/24
06:59 06:59 06:59
Intake Total 1615 / 1615 178 / 178
Output Total 1000 / 1000 300 / 300
Balance 615 / 615 -122 / -122
Review of Systems
-
History Source: Patient
All other systems: Reviewed and negative
--- NOTE | 2024-10-19 10:55 | W.PN.CD ---
Today's Communication / Plan
-
- Start metoprolol
- Eliquis 5 mg BID from tomorrow
- Stable for discharge
Impression / Plan
-
Syncope:
- inducible VT noted on EP study
- Had significant conduction disease but the syncope was likely more related to VT.
- s/p dual chamber ICD on 10/18/24
- Does have severe bradycardia and conduction disease
- Has AF and has wide complex arrhythmia
- Will start Metoprolol 50 mg QD now that he has ICD in place. .
AFIB, new diagnosis:
-type unknown
-TEVGH2CQBD score is 3 for age and HTN. Recommend Eliquis 5 mg PO BID (c/s CM for pricing)
-Start Eliquis 5 mg BID from tomorrow.
.
Previous admission with very mild elevation in troponin of unclear etiology. Suspected non-DC troponin with negative echo this admission with negative troponin
- follow-up Lexiscan - fixed defect likely artifact
HTN:
-on lisinopril as OP- continue and monitor
Physical Exam
Vital Signs/Labs
Vital Signs
Temp Pulse Resp BP Pulse Ox
98.8 F 63 18 142/95 98
10/19/24 08:00 10/19/24 08:15 10/19/24 08:00 10/19/24 08:03 10/19/24 08:00
10/19/24 04:50
10/19/24 04:50
PT 15.6 Sec (11.4-14.6) H 10/14/24 11:02
INR 1.18 10/14/24 11:02
APTT Cancelled 10/19/24 06:00
Magnesium 2.2 mg/dl (1.6-2.3) 10/15/24 04:51
Physical Exam
Constitutional: No acute distress and Comfortable
EENT: Anicteric and Moist mucous membranes
Cardiovascular: Rhythm & rate is regular, Pedal edema is absent and JVD pressure is normal
Respiratory: Respiratory effort normal, Lungs clear to auscul. and Crackles Absent
GI: Soft, Non tender and Normal bowel sounds
Neuro/Psych: Alert, Oriented and AO x 3
Other: Cardiac Device Site (pressure dressing removed. )
Data Reviewed
-
Date of Service: October 19, 2024
Medical Decision Making: Reviewed Test Results, Independent Historian Assessment, Test Interpretation and Review of Case with other Provider
EKG: Tracing Personally Visualized and interpreted
Echo: Report Reviewed by me
X-Ray/CT/US/MRI/NUC/PET: Image Personally Visualized and interpreted
Labs: Labs Reviewed by me
Old Records: Reviewed
--- NOTE | 2024-10-19 11:01 | W.DS.TRANS ---
DC Summary - Claims Technician
-
Discharge Instructions:
Discharge Diagnosis/Procedures Ventricular tachycardia, syncope, atrial
fibrillation
Diet Low Fat,Low Cholesterol
Activity As tolerated
Driving Restrictions As prior to admission
Bathing Restrictions None
Instructions:
Stand-Alone Forms: DC Inst - Implanted Device
Changes to Home Medications: No
Discharge Medications:
DC Medications w/original date entered in [facility]
ascorbic acid (vitamin C) 500 mg tablet (Vitamin C) 500 mg PO DAILY Supplement 10/08/24
cholecalciferol (vitamin D3) 25 mcg (1,000 unit) tablet (Vitamin D3) 25 mcg PO DAILY Supplement 10/08/24
linaclotide 145 mcg capsule (Linzess) 145 mcg PO DAILYPRN PRN constipation 10/08/24
lisinopril 20 mg tablet 20 mg PO DAILY Blood Pressure 10/08/24
sertraline 50 mg tablet 50 mg PO DAILY Mental Health 10/08/24
tamsulosin 0.4 mg capsule (Flomax) 0.4 mg PO DAILY Urinary Issue 10/08/24
aspirin 81 mg chewable tablet 81 mg PO DAILY #30 tabs 10/09/24
apixaban 5 mg tablet (Eliquis) 5 mg PO BID #60 tabs 10/19/24
metoprolol succinate 50 mg tablet,extended release 24 hr 50 mg PO DAILY #30 tabs 10/19/24
Home Medication Changes
Pending Results: No
[2024-10-19] MEDS: TOPROL XL 50 MG PO (12:12)
--- NOTE | 2024-10-19 13:54 | W.CARD.DEVCH ---
Cardiac Device Check
-
Device: Implanted Cardioverter-Defibrillator
Filler Block Inserter Remover: Medtronic
The patient's device was interrogated with assistance of the device automobile rental representative followed by a complete physician review. The device had normal function. No abnormalities seen.
--- NOTE | 2024-10-19 15:49 | PTCARENOTE ---
Pr received this am with no c/o. OOB ad óscar in the room. Left arm immobilizer intact. Left chest with pressure dressing intact, site WNL. Pt later discharged to home with his daughter. Pressure dressing off and aqucell dressing intact. Discharge
instructions given and reviewed with good understanding.
== END 2024-10-19 16:23 | disposition home or self-care (01) | DRG 277 ==
LOC: IVU 13:28
PROVIDERS: Hospitalist; Internal Medicine Cardiovascular Disease; Nurse Practitioner; ADMITTING PHYSICIAN Student in an Organized Health Care Education/Training Program; ATTENDING PHYSICIAN Hospitalist; CONSULT PHYSICIAN Internal Medicine; EMERGENCY PHYSICIAN Student in an Organized Health Care Education/Training Program; FAMILY PHYSICIAN Family Medicine
PROC: 3E033HZ Introduction of Radioactive Substance into Peripheral Vein, Percutaneous Approach (ICD-10-PCS; 2024-10-15)
PROC: 4A02XM4 Measurement of Cardiac Total Activity, External Approach (ICD-10-PCS; 2024-10-15)
PROC: 4A0234Z Measurement of Cardiac Electrical Activity, Percutaneous Approach (ICD-10-PCS; 2024-10-18)
PROC: 02HK3KZ Insertion of Defibrillator Lead into Right Ventricle, Percutaneous Approach (ICD-10-PCS; 2024-10-18)
PROC: 0JH608Z Insertion of Defibrillator Generator into Chest Subcutaneous Tissue and Fascia, Open Approach (ICD-10-PCS; 2024-10-18)
PROC: 3E0102A Introduction of Anti-Infective Envelope into Subcutaneous Tissue, Open Approach (ICD-10-PCS; 2024-10-18)
PROC: 02H63KZ Insertion of Defibrillator Lead into Right Atrium, Percutaneous Approach (ICD-10-PCS; 2024-10-18)
PROC: 4A023FZ Measurement of Cardiac Rhythm, Percutaneous Approach (ICD-10-PCS; 2024-10-18)
PROC: 4B02XTZ Measurement of Cardiac Defibrillator, External Approach (ICD-10-PCS; 2024-10-19)
DX: I47.20 Ventricular tachycardia, unspecified (principal); I5A Non-ischemic myocardial injury (non-traumatic); R55 Syncope and collapse; I45.2 Bifascicular block; I11.9 Hypertensive heart disease without heart failure; N40.0 Benign prostatic hyperplasia without lower urinary tract symptoms; I48.91 Unspecified atrial fibrillation; F32.A Depression, unspecified; R42 Dizziness and giddiness; F41.9 Anxiety disorder, unspecified; K59.00 Constipation, unspecified; W18.39XA Other fall on same level, initial encounter; Y93.89 Activity, other specified; Y92.89 Other specified places as the place of occurrence of the external cause; Y99.0 Civilian activity done for income or pay; Z79.82 Long term (current) use of aspirin; Z86.79 Personal history of other diseases of the circulatory system
CPT/HCPCS: 33249; 70450; 71045; 71046; 78452; 80048; 80053; 82962; 83735; 84443; 84484; 85025; 85027; 85610; 85730; 86803; 93005; 93017; 93620; 99285; A9500; C1721; C1777; C1892; C1894; C1898